=== PATIENT | female | born 1980 | race Caucasian/White ===

== ENCOUNTER 2017-07-31 23:14 | Emergency (ER) | payer OTHER ==
[~2017-07-31] VITALS: Ht 165.1 cm; Wt 79.4 kg
[~2017-07-31 23:14] MED LIST: ALPR1 PO; AMLO10 PO; ATEN25 PO; BENZ100A PO; CIPR500 PO; CYCL10 PO; DOCU100 PO; HYDACE5 PO; HYDMOR2 PO; IBUP400 PO; IBUP800 PO; LATUDA40 MG PO; LEVSOD50 PO; LISI5 PO; NAPR550 PO; OXYACE5T PO; PHENA200 PO; PROC10 PO; PROM25 PO; PROZAC20 MG PO; QUET25 PO; RXHYDMOR2 PO; RXOXYACE PO; RXPROM25 PO; RXTRAM50 PO; SULTRIDS PO; TRAM50 PO; TRAZ50 PO; VICODIN; ZESTRIL40 MG PO; Zofran Odt4 MG PO
[2017-07-31] MEDS ORDERED: Amox Tr-K Clv1 EAC2 PO (23:19)
[2017-07-31 23:59] LABS: BASOPHILS ABSOLUTE AUTO 0.07 K/mm3 (0.00-0.23); BASOPHILS PERCENT AUTO 1 % (0-2); EOSINOPHILS ABSOLUTE AUTO 1.52 K/mm3 (0.00-0.68); EOSINOPHILS PERCENT AUTO 14 % (0-6); Hematocrit 42.4 % (33.0-51.0); IMMATURE GRAN ABSOLUTE AUTO 0.07 K/mm3 (0.00-0.10); IMMATURE GRAN PERCENT AUTO 1 % (0-1); LYMPHOCYTES ABSOLUTE AUTO 3.46 K/mm3 (0.84-5.20); LYMPHOCYTES PERCENT AUTO 32 % (21-46); MONOCYTES PERCENT AUTO 6 % (4-13); Mean Corpuscular HGB 31.3 pg (26.0-34.0); Mean Corpuscular Volume 95 fL (80-100); Mean Platelet Volume 12.1 fL (9.1-12.4); NEUTROPHILS ABSOLUTE AUTO 5.07 K/mm3 (1.96-9.15); NEUTROPHILS PERCENT AUTO 47 % (41-73); Platelet Count 204 K/mm3 (150-400); RDW Coefficient Variation 13.6 % (11.7-14.2); RDW Standard Deviation 47.3 fL (35.1-46.3); Red Blood Cell Count 4.48 M/mm3 (3.80-5.20); White Blood Cell Count 10.79 K/mm3 (4.00-11.30)
[2017-08-01 00:12] LABS: Alanine Aminotransfer (ALT/SGP 37 U/L (12-78); Albumin/Globulin Ratio 0.8 (0.8-1.8); Alk Phos 119 U/L (50-136); Anion Gap 8 mmol/L (6-16); Aspartate Aminotrans (AST/SGOT 28 U/L (12-37); Bilirubin, Total 0.1 mg/dL (0.1-1.0); Blood Urea Nitrogen 24 mg/dL (8-24); Bun/Creatinine Ratio 32.6 (12.0-20.0); CO2, Blood 26 mmol/L (21-32); Calcium, Blood 8.7 mg/dL (8.5-10.1); Chloride, Blood 106 mmol/L (98-108); Creatinine, Blood 0.74 mg/dL (0.40-1.00); Globulin, Blood 3.9 g/dL (2.2-4.0); Glomerular Filtration Rate >60 (60-); Glucose, Blood 96 mg/dL (70-99); Potassium, Blood 4.1 mmol/L (3.5-5.5); Sodium, Blood 140 mmol/L (136-145); Total Protein, Blood 6.9 g/dL (6.4-8.2)
[2017-08-01 00:20] LABS: Source, Urine Clean Catch
[2017-08-01 00:23] LABS: Bilirubin, Urine Neg (Neg); Blood, Urine 1+ (Neg); Glucose Qualitative, Urine Neg (Neg); Ketones, Urine Neg (Neg); Leukocyte Esterase, Urine Neg (Neg); Nitrite, Urine Neg (Neg); Protein, Urine Neg (Neg); Specific Gravity, Urine 1.015 (1.003-1.022); Urobilinogen, Urine NORM (Normal)
[2017-08-01 00:36] LABS: Appearance, Urine Clear (Clear); Color, Urine Pale Yellow (P-Yellow)
[2017-08-01 00:37] LABS: Bacteria Rare /hpf; Red Blood Cells, Urine Rare /hpf (0-2); Squamous Epithelial Cells Mod /hpf (Few); White Blood Cells, Urine Not Seen /hpf (0-5)
[2017-08-01] MEDS ORDERED: Zofran Odt4 MG SL (00:52)
[2018-04-08] MEDS ORDERED: IBUP400 PO (05:14)
[2018-04-09] MEDS ORDERED: LEVE500 PO (09:50)
[2018-04-09] MEDS ORDERED: PROZAC20 MG PO (09:50)
[2018-04-09] MEDS ORDERED: Seroquel50 MG PO (09:51)
[2018-06-19] MEDS ORDERED: Norco 5-325 Ta1 EACH PO (03:56)
[2018-06-19] MEDS ORDERED: Crutch1 EACH UD (03:56)
[2018-06-30] MEDS ORDERED: LATUDA80 MG PO (06:03)
[2018-06-30] MEDS ORDERED: Omeprazole20 M1 (06:03)
[2018-06-30] MEDS ORDERED: Zofran4 MG PO (08:48)
[2018-06-30] MEDS ORDERED: Macrobid 100 M100 MG PO (08:48)
== END 2017-08-01 01:10 | disposition home or self-care (01) ==
LOC: ER 23:14
PROVIDERS: Physician Assistant
DX: R10.30 Lower abdominal pain, unspecified (principal); R11.2 Nausea with vomiting, unspecified; I10 Essential (primary) hypertension; F17.200 Nicotine dependence, unspecified, uncomplicated; Z90.49 Acquired absence of other specified parts of digestive tract; Z90.710 Acquired absence of both cervix and uterus; Z88.8 Allergy status to other drugs, medicaments and biological substances; Z79.899 Other long term (current) drug therapy; Z79.2 Long term (current) use of antibiotics
CPT/HCPCS: 36415; 80053; 81001; 83690; 85025; 96374; 96375; 99283; J1630; J1885; J2405; J7030

== ENCOUNTER 2017-10-16 18:29 | Emergency (ER) | payer OTHER ==
[~2017-10-16] VITALS: Ht 162.6 cm; Wt 77.1 kg
[~2017-10-16 18:29] MED LIST changes: +Amox Tr-K Clv1 EAC2 PO; +Zofran Odt4 MG SL
[2017-10-16 19:05] LABS: Source, Urine Clean Catch
[2017-10-16 19:42] LABS: Appearance, Urine Hazy (Clear); Bilirubin, Urine Neg (Neg); Blood, Urine 3+ (Neg); Color, Urine Yellow (P-Yellow); Glucose Qualitative, Urine Neg (Neg); Ketones, Urine 1+ (Neg); Leukocyte Esterase, Urine Neg (Neg); Nitrite, Urine Pos (Neg); Protein, Urine 3+ (Neg); Urobilinogen, Urine NORM (Normal)
[2017-10-16] MEDS ORDERED: Hydromet Syrup473 ML PO (19:48)
[2017-10-16] MEDS ORDERED: Keflex500 MG PO (19:48)
[2017-10-16] MEDS ORDERED: Sudogest60 MG PO (19:48)
[2017-10-16 19:56] LABS: Bacteria Many /hpf; Squamous Epithelial Cells Mod /hpf (Few)
[2018-04-08] MEDS ORDERED: IBUP400 PO (05:14)
[2018-04-09] MEDS ORDERED: LEVE500 PO (09:50)
[2018-04-09] MEDS ORDERED: PROZAC20 MG PO (09:50)
[2018-04-09] MEDS ORDERED: Seroquel50 MG PO (09:51)
[2018-06-19] MEDS ORDERED: Norco 5-325 Ta1 EACH PO (03:56)
[2018-06-19] MEDS ORDERED: Crutch1 EACH UD (03:56)
[2018-06-30] MEDS ORDERED: Omeprazole20 M1 (06:03)
[2018-06-30] MEDS ORDERED: LATUDA80 MG PO (06:03)
[2018-06-30] MEDS ORDERED: Zofran4 MG PO (08:48)
[2018-06-30] MEDS ORDERED: Macrobid 100 M100 MG PO (08:48)
== END 2017-10-16 20:00 | disposition home or self-care (01) ==
LOC: ER 18:29
PROVIDERS: Physician Assistant
DX: N39.0 Urinary tract infection, site not specified (principal); R05 Cough; Z88.8 Allergy status to other drugs, medicaments and biological substances; Z79.899 Other long term (current) drug therapy; F17.200 Nicotine dependence, unspecified, uncomplicated
CPT/HCPCS: 81001; 81025; 87077; 87086; 87186; 99284

== ENCOUNTER 2018-02-01 17:43 | Emergency (ER) | payer OTHER ==
[~2018-02-01] VITALS: Ht 165.1 cm; Wt 81.7 kg
[~2018-02-01 17:43] MED LIST changes: +Hydromet Syrup473 ML PO; +Keflex500 MG PO; +Sudogest60 MG PO
[2018-02-01] MEDS ORDERED: Omeprazole20 M1 PO (18:22)
[2018-02-01] MEDS ORDERED: Keflex500 MG PO (19:28)
[2018-02-01] MEDS ORDERED: Bactrim Ds Tab1 EACH PO (19:28)
[2018-02-01] MEDS ORDERED: Norco 5-325 Ta1 EACH PO (19:29)
== END 2018-02-01 19:46 | disposition home or self-care (01) ==
LOC: ER 17:43
DX: N76.4 Abscess of vulva (principal); K21.9 Gastro-esophageal reflux disease without esophagitis; I10 Essential (primary) hypertension; F17.200 Nicotine dependence, unspecified, uncomplicated; Z88.8 Allergy status to other drugs, medicaments and biological substances; Z88.5 Allergy status to narcotic agent; Z79.899 Other long term (current) drug therapy
CPT/HCPCS: 56405; 99283-25

== ENCOUNTER → 2018-03-03 | Outpatient (CLI) | payer OTHER ==
[~2018-03-03] MED LIST changes: +Bactrim Ds Tab1 EACH PO; +Norco 5-325 Ta1 EACH PO; +Omeprazole20 M1 PO
[2018-03-03 13:47] LABS: BASOPHILS ABSOLUTE AUTO 0.07 K/mm3 (0.00-0.23); BASOPHILS PERCENT AUTO 1 % (0-2); EOSINOPHILS ABSOLUTE AUTO 0.67 K/mm3 (0.00-0.68); EOSINOPHILS PERCENT AUTO 8 % (0-6); Hematocrit 43.3 % (33.0-51.0); Hemoglobin 14.9 g/dL (11.5-16.0); IMMATURE GRAN ABSOLUTE AUTO 0.04 K/mm3 (0.00-0.10); IMMATURE GRAN PERCENT AUTO 1 % (0-1); LYMPHOCYTES ABSOLUTE AUTO 2.01 K/mm3 (0.84-5.20); LYMPHOCYTES PERCENT AUTO 23 % (21-46); MONOCYTES ABSOLUTE AUTO 0.43 K/mm3 (0.16-1.47); MONOCYTES PERCENT AUTO 5 % (4-13); Mean Corpuscular HGB 31.4 pg (26.0-34.0); Mean Corpuscular HGB Conc 34.4 g/dL (31.5-36.5); Mean Corpuscular Volume 91 fL (80-100); Mean Platelet Volume 11.8 fL (9.1-12.4); NEUTROPHILS ABSOLUTE AUTO 5.44 K/mm3 (1.96-9.15); NEUTROPHILS PERCENT AUTO 63 % (41-73); Platelet Count 231 K/mm3 (150-400); RDW Coefficient Variation 13.2 % (11.7-14.2); RDW Standard Deviation 44.4 fL (35.1-46.3); Red Blood Cell Count 4.74 M/mm3 (3.80-5.20); White Blood Cell Count 8.66 K/mm3 (4.00-11.30)
[2018-03-03 14:01] LABS: Alanine Aminotransfer (ALT/SGP 97 U/L (12-78); Albumin, Blood 3.4 g/dL (3.4-5.0); Alk Phos 113 U/L (40-126); Anion Gap 10 mmol/L (6-16); Aspartate Aminotrans (AST/SGOT 43 U/L (12-37); Bilirubin, Total 0.2 mg/dL (0.1-1.0); Blood Urea Nitrogen 20 mg/dL (8-24); Bun/Creatinine Ratio 23.3 (12.0-20.0); CO2, Blood 25 mmol/L (21-32); Calcium, Blood 9.3 mg/dL (8.5-10.1); Chloride, Blood 105 mmol/L (98-108); Creatinine, Blood 0.86 mg/dL (0.40-1.00); Globulin, Blood 3.4 g/dL (2.2-4.0); Glomerular Filtration Rate >60 (60-); Glucose, Blood 100 mg/dL (70-99); Potassium, Blood 4.1 mmol/L (3.5-5.5); Sodium, Blood 140 mmol/L (136-145); Total Protein, Blood 6.8 g/dL (6.4-8.2)
== END ==
LOC: LAB EV 13:42 → LAB SHORT 13:42
PROVIDERS: Family Medicine
DX: M54.5 Low back pain (principal)
CPT/HCPCS: 80053; 85025

== ENCOUNTER 2018-04-04 00:11 | Emergency (ER) | payer OTHER ==
[~2018-04-04] VITALS: Ht 165.1 cm; Wt 83.9 kg
[2018-04-04 00:33] LABS: BASOPHILS ABSOLUTE AUTO 0.08 K/mm3 (0.00-0.23); BASOPHILS PERCENT AUTO 1 % (0-2); EOSINOPHILS PERCENT AUTO 7 % (0-6); Hemoglobin 13.9 g/dL (11.5-16.0); IMMATURE GRAN ABSOLUTE AUTO 0.07 K/mm3 (0.00-0.10); IMMATURE GRAN PERCENT AUTO 1 % (0-1); LYMPHOCYTES ABSOLUTE AUTO 2.92 K/mm3 (0.84-5.20); LYMPHOCYTES PERCENT AUTO 34 % (21-46); MONOCYTES ABSOLUTE AUTO 0.36 K/mm3 (0.16-1.47); MONOCYTES PERCENT AUTO 4 % (4-13); Mean Corpuscular HGB 31.3 pg (26.0-34.0); Mean Corpuscular HGB Conc 33.1 g/dL (31.5-36.5); Mean Corpuscular Volume 95 fL (80-100); Mean Platelet Volume 11.7 fL (9.1-12.4); NEUTROPHILS ABSOLUTE AUTO 4.46 K/mm3 (1.96-9.15); NEUTROPHILS PERCENT AUTO 53 % (41-73); Platelet Count 214 K/mm3 (150-400); RDW Coefficient Variation 13.2 % (11.7-14.2); Red Blood Cell Count 4.44 M/mm3 (3.80-5.20); White Blood Cell Count 8.49 K/mm3 (4.00-11.30)
[2018-04-04 00:52] LABS: Alanine Aminotransfer (ALT/SGP 179 U/L (12-78); Albumin, Blood 3.1 g/dL (3.4-5.0); Albumin/Globulin Ratio 0.8 (0.8-1.8); Alk Phos 145 U/L (50-136); Anion Gap 7 mmol/L (6-16); Aspartate Aminotrans (AST/SGOT 37 U/L (12-37); Bilirubin, Total 0.2 mg/dL (0.1-1.0); Blood Urea Nitrogen 25 mg/dL (8-24); Bun/Creatinine Ratio 26.8 (12.0-20.0); CO2, Blood 26 mmol/L (21-32); Calcium, Blood 8.5 mg/dL (8.5-10.1); Chloride, Blood 107 mmol/L (98-108); Creatinine, Blood 0.93 mg/dL (0.40-1.00); Globulin, Blood 3.9 g/dL (2.2-4.0); Glomerular Filtration Rate >60 (60-); Glucose, Blood 123 mg/dL (70-99); Potassium, Blood 4.5 mmol/L (3.5-5.5); Sodium, Blood 140 mmol/L (136-145)
[2018-04-04 01:35] LABS: Ethanol (Alcohol), Blood, Med <3 mg/dL; Free Thyroxine 0.73 ng/dL (0.70-1.60)
[2018-04-04 01:37] LABS: Triiodothyronine, Free 2.66 pg/mL (2.18-3.98)
[2018-04-04 02:04] LABS: Source, Urine Clean Catch
[2018-04-04 02:06] LABS: Bilirubin, Urine Neg (Neg); Blood, Urine Neg (Neg); Glucose Qualitative, Urine Neg (Neg); Ketones, Urine Neg (Neg); Leukocyte Esterase, Urine Neg (Neg); Nitrite, Urine Neg (Neg); Protein, Urine 1+ (Neg); Urobilinogen, Urine NORM (Normal)
[2018-04-04 02:11] LABS: Appearance, Urine Clear (Clear); Color, Urine Yellow (P-Yellow)
[2018-04-04] MEDS ORDERED: FLUO10 PO (02:17)
[2018-04-04 02:19] LABS: U Amphetamine Screen Not Detected; U Barbituate Screen Not Detected; U Benzodiazapine Screen DETECTED; U Buprenorphine Screen Not Detected; U Cannabinoids Screen Not Detected; U Cocaine Screen Not Detected; U Methadone Screen Not Detected; U Methamphetamine Screen Not Detected; U Opiates Screen Not Detected; U Oxycodone Screen Not Detected; U Phencyclidine Screen Not Detected; U Propoxyphene Screen Not Detected
== END 2018-04-04 04:36 | disposition home or self-care (01) ==
LOC: ER 00:11
PROVIDERS: Emergency Medicine
DX: R55 Syncope and collapse (principal); R10.9 Unspecified abdominal pain; Z88.8 Allergy status to other drugs, medicaments and biological substances; Z88.6 Allergy status to analgesic agent; Z79.899 Other long term (current) drug therapy; Z79.2 Long term (current) use of antibiotics; Z87.891 Personal history of nicotine dependence
CPT/HCPCS: 70450; 80053; 84439; 84443; 84481; 85025; 93005; 93010; 96361; 96374; 96375; 99285-25; G0480; J2060; J2405; J3010; J7030

== ENCOUNTER 2018-04-06 13:01 | Emergency (ER) | payer OTHER ==
[~2018-04-06] VITALS: Ht 165.1 cm; Wt 72.6 kg
[~2018-04-06 13:01] MED LIST changes: +FLUO10 PO
[2018-04-06 13:44] LABS: BASOPHILS ABSOLUTE AUTO 0.08 K/mm3 (0.00-0.23); BASOPHILS PERCENT AUTO 1 % (0-2); EOSINOPHILS ABSOLUTE AUTO 0.55 K/mm3 (0.00-0.68); EOSINOPHILS PERCENT AUTO 6 % (0-6); Hematocrit 43.7 % (33.0-51.0); Hemoglobin 14.6 g/dL (11.5-16.0); IMMATURE GRAN PERCENT AUTO 1 % (0-1); LYMPHOCYTES PERCENT AUTO 27 % (21-46); MONOCYTES ABSOLUTE AUTO 0.44 K/mm3 (0.16-1.47); MONOCYTES PERCENT AUTO 5 % (4-13); Mean Corpuscular HGB 31.4 pg (26.0-34.0); Mean Corpuscular HGB Conc 33.4 g/dL (31.5-36.5); Mean Corpuscular Volume 94 fL (80-100); Mean Platelet Volume 11.6 fL (9.1-12.4); NEUTROPHILS ABSOLUTE AUTO 5.48 K/mm3 (1.96-9.15); NEUTROPHILS PERCENT AUTO 60 % (41-73); Platelet Count 218 K/mm3 (150-400); RDW Coefficient Variation 13.2 % (11.7-14.2); RDW Standard Deviation 45.1 fL (35.1-46.3); Red Blood Cell Count 4.65 M/mm3 (3.80-5.20); White Blood Cell Count 9.15 K/mm3 (4.00-11.30)
[2018-04-06 14:00] LABS: Alanine Aminotransfer (ALT/SGP 111 U/L (12-78); Albumin, Blood 3.3 g/dL (3.4-5.0); Albumin/Globulin Ratio 0.9 (0.8-1.8); Alk Phos 120 U/L (50-136); Anion Gap 8 mmol/L (6-16); Aspartate Aminotrans (AST/SGOT 30 U/L (12-37); Bilirubin, Total 0.2 mg/dL (0.1-1.0); Blood Urea Nitrogen 23 mg/dL (8-24); Bun/Creatinine Ratio 28.7 (12.0-20.0); CO2, Blood 25 mmol/L (21-32); Calcium, Blood 8.2 mg/dL (8.5-10.1); Chloride, Blood 107 mmol/L (98-108); Globulin, Blood 3.7 g/dL (2.2-4.0); Glomerular Filtration Rate >60 (60-); Glucose, Blood 106 mg/dL (70-99); Potassium, Blood 4.2 mmol/L (3.5-5.5); Sodium, Blood 140 mmol/L (136-145)
[2018-04-06] MEDS ORDERED: Ativan1 MG PO (15:38)
[2018-04-08] MEDS ORDERED: IBUP400 PO (05:14)
[2018-04-09] MEDS ORDERED: PROZAC20 MG PO (09:50)
[2018-04-09] MEDS ORDERED: LEVE500 PO (09:50)
[2018-04-09] MEDS ORDERED: Seroquel50 MG PO (09:51)
== END 2018-04-06 16:01 | disposition home or self-care (01) ==
LOC: ER 13:01
PROVIDERS: Emergency Medicine
DX: R56.9 Unspecified convulsions (principal); Z88.8 Allergy status to other drugs, medicaments and biological substances; Z88.5 Allergy status to narcotic agent; Z79.899 Other long term (current) drug therapy
CPT/HCPCS: 80053; 85025; 93005; 93010; 96361; 96374; 96375; 99284-25; J1630; J2060; J7030

== ENCOUNTER 2018-04-07 13:22 | Emergency (ER) | payer OTHER ==
[~2018-04-07] VITALS: Ht 165.1 cm; Wt 81.7 kg
[~2018-04-07 13:22] MED LIST changes: +Ativan1 MG PO
[2018-04-08] MEDS ORDERED: IBUP400 PO (05:14)
[2018-04-09] MEDS ORDERED: LEVE500 PO (09:50)
[2018-04-09] MEDS ORDERED: PROZAC20 MG PO (09:50)
[2018-04-09] MEDS ORDERED: Seroquel50 MG PO (09:51)
== END 2018-04-07 13:58 | disposition left against medical advice (07) ==
LOC: ER 13:22
DX: Z53.21 Procedure and treatment not carried out due to patient leaving prior to being seen by health care provider (principal)
CPT/HCPCS: 99281

== ENCOUNTER 2018-04-17 18:00 | Emergency (ER) | payer OTHER ==
[~2018-04-17] VITALS: Ht 165.1 cm; Wt 83.9 kg
[~2018-04-17 18:00] MED LIST changes: +LEVE500 PO; +Seroquel50 MG PO
[2018-04-17 19:02] LABS: BASOPHILS ABSOLUTE AUTO 0.08 K/mm3 (0.00-0.23); BASOPHILS PERCENT AUTO 1 % (0-2); EOSINOPHILS ABSOLUTE AUTO 0.74 K/mm3 (0.00-0.68); EOSINOPHILS PERCENT AUTO 8 % (0-6); Hematocrit 43.4 % (33.0-51.0); Hemoglobin 14.3 g/dL (11.5-16.0); IMMATURE GRAN PERCENT AUTO 1 % (0-1); LYMPHOCYTES ABSOLUTE AUTO 2.77 K/mm3 (0.84-5.20); LYMPHOCYTES PERCENT AUTO 29 % (21-46); MONOCYTES ABSOLUTE AUTO 0.52 K/mm3 (0.16-1.47); MONOCYTES PERCENT AUTO 5 % (4-13); Mean Corpuscular HGB 30.9 pg (26.0-34.0); Mean Corpuscular HGB Conc 32.9 g/dL (31.5-36.5); Mean Corpuscular Volume 94 fL (80-100); NEUTROPHILS ABSOLUTE AUTO 5.39 K/mm3 (1.96-9.15); NEUTROPHILS PERCENT AUTO 56 % (41-73); RDW Coefficient Variation 13.1 % (11.7-14.2); RDW Standard Deviation 45.1 fL (35.1-46.3); Red Blood Cell Count 4.63 M/mm3 (3.80-5.20)
[2018-04-17 19:08] LABS: Source, Urine Clean Catch
[2018-04-17 19:18] LABS: Alanine Aminotransfer (ALT/SGP 56 U/L (12-78); Albumin, Blood 3.3 g/dL (3.4-5.0); Albumin/Globulin Ratio 0.8 (0.8-1.8); Alk Phos 102 U/L (50-136); Anion Gap 8 mmol/L (6-16); Aspartate Aminotrans (AST/SGOT 34 U/L (12-37); Bilirubin, Total 0.2 mg/dL (0.1-1.0); Blood Urea Nitrogen 30 mg/dL (8-24); Bun/Creatinine Ratio 38.3 (12.0-20.0); CO2, Blood 24 mmol/L (21-32); Calcium, Blood 8.8 mg/dL (8.5-10.1); Chloride, Blood 107 mmol/L (98-108); Creatinine, Blood 0.78 mg/dL (0.40-1.00); Glomerular Filtration Rate >60 (60-); Glucose, Blood 89 mg/dL (70-99); Potassium, Blood 4.2 mmol/L (3.5-5.5); Sodium, Blood 139 mmol/L (136-145); Total Protein, Blood 7.3 g/dL (6.4-8.2)
[2018-04-17 19:26] LABS: Mean Platelet Volume 11.6 fL (9.1-12.4); Platelet Count 186 K/mm3 (150-400)
[2018-04-17 19:33] LABS: Appearance, Urine Hazy (Clear); Bilirubin, Urine Neg (Neg); Blood, Urine 5+ (Neg); Color, Urine Yellow (P-Yellow); Glucose Qualitative, Urine Neg (Neg); Ketones, Urine Neg (Neg); Leukocyte Esterase, Urine Neg (Neg); Nitrite, Urine Neg (Neg); Protein, Urine 1+ (Neg); Specific Gravity, Urine 1.015 (1.003-1.022); Urobilinogen, Urine NORM (Normal)
[2018-04-17 19:42] LABS: Bacteria Many /hpf; Red Blood Cells, Urine 25-50 /hpf (0-2); Squamous Epithelial Cells Many /hpf (Few)
[2018-04-17] MEDS ORDERED: Zofran4 MG PO (21:44)
[2018-04-17] MEDS ORDERED: Norco 5-325 Ta1 EACH PO (21:44)
[2018-04-17] MEDS ORDERED: Macrobid 100 M100 MG PO (21:44)
== END 2018-04-17 21:57 | disposition home or self-care (01) ==
LOC: ER 18:00
PROVIDERS: Physician Assistant
DX: R82.71 Bacteriuria (principal); F31.9 Bipolar disorder, unspecified; I10 Essential (primary) hypertension; Z91.048 Other nonmedicinal substance allergy status; Z88.8 Allergy status to other drugs, medicaments and biological substances; Z88.5 Allergy status to narcotic agent; Z79.899 Other long term (current) drug therapy; Z87.891 Personal history of nicotine dependence
CPT/HCPCS: 36415; 74176; 80053; 81001; 85025; 96361; 96374; 99284-25; J3010; J7030

== ENCOUNTER 2018-09-04 23:32 | Emergency (ER) | payer OTHER ==
[~2018-09-04] VITALS: Ht 165.1 cm; Wt 88.5 kg
[~2018-09-04 23:32] MED LIST changes: +Crutch1 EACH UD; +LATUDA80 MG PO; +Macrobid 100 M100 MG PO; +Omeprazole20 M1; +Zofran4 MG PO
[2018-09-05] MEDS ORDERED: DIVA125EC (00:06)
[2018-09-05] MEDS ORDERED: TOPI25 (00:07)
[2018-09-05 00:29] LABS: Source, Urine Clean Catch
[2018-09-05 00:54] LABS: Bilirubin, Urine Neg (Neg); Blood, Urine 1+ (Neg); Glucose Qualitative, Urine Neg (Neg); Ketones, Urine Neg (Neg); Leukocyte Esterase, Urine Neg (Neg); Nitrite, Urine Neg (Neg); Protein, Urine 2+ (Neg); Specific Gravity, Urine 1.015 (1.003-1.022); Urobilinogen, Urine NORM (Normal)
[2018-09-05 01:05] LABS: Appearance, Urine Clear (Clear); Color, Urine Yellow (P-Yellow)
[2018-09-05 01:07] LABS: Bacteria Mod /hpf; Red Blood Cells, Urine 0-2 /hpf (0-2); Squamous Epithelial Cells Few /hpf (Few)
[2018-09-05] MEDS ORDERED: CEPH500 PO (01:20)
[2018-09-05] MEDS ORDERED: Pyridium100 MG PO (01:20)
[2018-09-05] MEDS ORDERED: BENZ100A PO (01:20)
== END 2018-09-05 01:45 | disposition home or self-care (01) ==
LOC: ER 23:32
PROVIDERS: Emergency Medicine
DX: J06.9 Acute upper respiratory infection, unspecified (principal); N39.0 Urinary tract infection, site not specified; Z88.8 Allergy status to other drugs, medicaments and biological substances; Z88.6 Allergy status to analgesic agent; Z79.899 Other long term (current) drug therapy; Z87.891 Personal history of nicotine dependence
CPT/HCPCS: 81001; 81025; 87081; 87086; 87430; 99283

== ENCOUNTER → 2018-09-22 | Outpatient (CLI) | payer OTHER ==
[~2018-09-22] MED LIST changes: +CEFP200 PO; +CEPH500 PO; +DIVA125EC; +DIVA500EC PO; +Pyridium100 MG PO; +TOPI25; +TOPI25 PO
[2018-09-22 13:58] LABS: BASOPHILS ABSOLUTE AUTO 0.07 K/mm3 (0.00-0.23); BASOPHILS PERCENT AUTO 1 % (0-2); EOSINOPHILS ABSOLUTE AUTO 0.79 K/mm3 (0.00-0.68); EOSINOPHILS PERCENT AUTO 10 % (0-6); Hematocrit 45.3 % (33.0-51.0); Hemoglobin 15.5 g/dL (11.5-16.0); IMMATURE GRAN ABSOLUTE AUTO 0.04 K/mm3 (0.00-0.10); IMMATURE GRAN PERCENT AUTO 1 % (0-1); LYMPHOCYTES ABSOLUTE AUTO 2.39 K/mm3 (0.84-5.20); LYMPHOCYTES PERCENT AUTO 30 % (21-46); MONOCYTES ABSOLUTE AUTO 0.38 K/mm3 (0.16-1.47); MONOCYTES PERCENT AUTO 5 % (4-13); Mean Corpuscular HGB 30.6 pg (26.0-34.0); Mean Corpuscular HGB Conc 34.2 g/dL (31.5-36.5); Mean Corpuscular Volume 89 fL (80-100); Mean Platelet Volume 11.5 fL (9.1-12.4); NEUTROPHILS ABSOLUTE AUTO 4.31 K/mm3 (1.96-9.15); NEUTROPHILS PERCENT AUTO 54 % (41-73); Platelet Count 223 K/mm3 (150-400); RDW Coefficient Variation 13.3 % (11.7-14.2); RDW Standard Deviation 43.1 fL (35.1-46.3); Red Blood Cell Count 5.07 M/mm3 (3.80-5.20); White Blood Cell Count 7.98 K/mm3 (4.00-11.30)
[2018-09-22 14:05] LABS: Anion Gap 9 mmol/L (6-16); Blood Urea Nitrogen 21 mg/dL (8-24); Bun/Creatinine Ratio 24.7 (12.0-20.0); CO2, Blood 24 mmol/L (21-32); Calcium, Blood 8.5 mg/dL (8.5-10.1); Chloride, Blood 105 mmol/L (98-108); Creatinine, Blood 0.85 mg/dL (0.40-1.00); Glomerular Filtration Rate >60 (60-); Glucose, Blood 105 mg/dL (70-99); Potassium, Blood 3.7 mmol/L (3.5-5.5); Sodium, Blood 138 mmol/L (136-145)
== END | disposition home or self-care (01) ==
LOC: LAB SHORT 13:54 → LAB EV 13:54
PROVIDERS: Physician Assistant Surgical
DX: N04.9 Nephrotic syndrome with unspecified morphologic changes (principal)
CPT/HCPCS: 80048; 85025

== ENCOUNTER 2018-09-23 10:56 | Emergency (ER) | payer OTHER ==
[~2018-09-23] VITALS: Ht 165.1 cm; Wt 96.2 kg
[~2018-09-23 10:56] MED LIST changes: -CEFP200 PO; -DIVA500EC PO; -TOPI25 PO
[2018-09-23 12:48] LABS: Alanine Aminotransfer (ALT/SGP 32 U/L (12-78); Albumin, Blood 3.3 g/dL (3.4-5.0); Albumin/Globulin Ratio 0.8 (0.8-1.8); Alk Phos 100 U/L (50-136); Anion Gap 7 mmol/L (6-16); Aspartate Aminotrans (AST/SGOT 18 U/L (12-37); Bilirubin, Total 0.2 mg/dL (0.1-1.0); Blood Urea Nitrogen 24 mg/dL (8-24); Bun/Creatinine Ratio 31.5 (12.0-20.0); CO2, Blood 20 mmol/L (21-32); Calcium, Blood 8.4 mg/dL (8.5-10.1); Chloride, Blood 125 mmol/L (98-108); Creatinine, Blood 0.76 mg/dL (0.40-1.00); Globulin, Blood 4.3 g/dL (2.2-4.0); Glomerular Filtration Rate >60 (60-); Glucose, Blood 153 mg/dL (70-99); Potassium, Blood 4.2 mmol/L (3.5-5.5); Total Protein, Blood 7.6 g/dL (6.4-8.2)
[2018-09-23 12:59] LABS: BASOPHILS PERCENT AUTO 1 % (0-2); EOSINOPHILS ABSOLUTE AUTO 0.81 K/mm3 (0.00-0.68); EOSINOPHILS PERCENT AUTO 9 % (0-6); Hematocrit 47.8 % (33.0-51.0); Hemoglobin 15.6 g/dL (11.5-16.0); IMMATURE GRAN ABSOLUTE AUTO 0.07 K/mm3 (0.00-0.10); IMMATURE GRAN PERCENT AUTO 1 % (0-1); LYMPHOCYTES ABSOLUTE AUTO 2.77 K/mm3 (0.84-5.20); LYMPHOCYTES PERCENT AUTO 31 % (21-46); MONOCYTES ABSOLUTE AUTO 0.41 K/mm3 (0.16-1.47); MONOCYTES PERCENT AUTO 5 % (4-13); Mean Corpuscular HGB 30.7 pg (26.0-34.0); Mean Corpuscular HGB Conc 32.6 g/dL (31.5-36.5); NEUTROPHILS ABSOLUTE AUTO 4.93 K/mm3 (1.96-9.15); NEUTROPHILS PERCENT AUTO 54 % (41-73); Platelet Count 214 K/mm3 (150-400); RDW Coefficient Variation 13.1 % (11.7-14.2); Red Blood Cell Count 5.08 M/mm3 (3.80-5.20); White Blood Cell Count 9.09 K/mm3 (4.00-11.30)
[2018-09-23 13:00] LABS: Mean Corpuscular Volume 94 fL (80-100)
[2018-09-23 13:22] LABS: Sodium, Blood 152 mmol/L (136-145)
[2018-09-23 14:39] LABS: Source, Urine Clean Catch
[2018-09-23 14:46] LABS: Appearance, Urine Cloudy (Clear); Bilirubin, Urine Neg (Neg); Blood, Urine 5+ (Neg); Color, Urine Red (P-Yellow); Glucose Qualitative, Urine Neg (Neg); Ketones, Urine 1+ (Neg); Leukocyte Esterase, Urine 1+ (Neg); Nitrite, Urine Pos (Neg); Protein, Urine 2+ (Neg); Urobilinogen, Urine NORM (Normal)
[2018-09-23] MEDS ORDERED: DIVA500EC PO (15:00)
[2018-09-23] MEDS ORDERED: Omeprazole20 M1 PO (15:01)
[2018-09-23] MEDS ORDERED: LISI5 PO (15:01)
[2018-09-23] MEDS ORDERED: TOPI25 PO (15:02)
[2018-09-23 15:08] LABS: Squamous Epithelial Cells Rare /hpf (Few)
[2018-09-23 15:09] LABS: Bacteria Rare /hpf; Red Blood Cells, Urine TNTC /hpf (0-2); White Blood Cells, Urine Not Seen /hpf (0-5)
[2018-09-23] MEDS ORDERED: CEFP200 PO (17:35)
== END 2018-09-23 17:47 | disposition home or self-care (01) ==
LOC: ER 10:56
PROVIDERS: Physician Assistant
DX: N12 Tubulo-interstitial nephritis, not specified as acute or chronic (principal); E87.0 Hyperosmolality and hypernatremia; Z87.891 Personal history of nicotine dependence
CPT/HCPCS: 36415; 76770; 80053; 81001; 85025; 87086

== ENCOUNTER → 2018-10-19 | Outpatient (CLI) | payer OTHER ==
[~2018-10-19] MED LIST changes: +CEFP200 PO; +DIVA500EC PO; +TOPI25 PO
[2018-10-19 12:38] LABS: BASOPHILS ABSOLUTE AUTO 0.05 K/mm3 (0.00-0.23); BASOPHILS PERCENT AUTO 1 % (0-2); EOSINOPHILS PERCENT AUTO 7 % (0-6); Hematocrit 45.4 % (33.0-51.0); Hemoglobin 15.6 g/dL (11.5-16.0); IMMATURE GRAN ABSOLUTE AUTO 0.02 K/mm3 (0.00-0.10); IMMATURE GRAN PERCENT AUTO 0 % (0-1); LYMPHOCYTES ABSOLUTE AUTO 2.17 K/mm3 (0.84-5.20); LYMPHOCYTES PERCENT AUTO 30 % (21-46); MONOCYTES ABSOLUTE AUTO 0.42 K/mm3 (0.16-1.47); MONOCYTES PERCENT AUTO 6 % (4-13); Mean Corpuscular HGB Conc 34.4 g/dL (31.5-36.5); Mean Corpuscular Volume 90 fL (80-100); Mean Platelet Volume 11.4 fL (9.1-12.4); NEUTROPHILS ABSOLUTE AUTO 4.14 K/mm3 (1.96-9.15); NEUTROPHILS PERCENT AUTO 57 % (41-73); Platelet Count 238 K/mm3 (150-400); RDW Coefficient Variation 14.1 % (11.7-14.2); RDW Standard Deviation 46.4 fL (35.1-46.3); Red Blood Cell Count 5.04 M/mm3 (3.80-5.20)
[2018-10-19 12:52] LABS: Alanine Aminotransfer (ALT/SGP 34 U/L (12-78); Albumin, Blood 3.6 g/dL (3.4-5.0); Albumin/Globulin Ratio 0.9 (0.8-1.8); Alk Phos 103 U/L (40-126); Anion Gap 12 mmol/L (6-16); Aspartate Aminotrans (AST/SGOT 21 U/L (12-37); Bilirubin, Total 0.4 mg/dL (0.1-1.0); Blood Urea Nitrogen 24 mg/dL (8-24); Bun/Creatinine Ratio 28.2 (12.0-20.0); CO2, Blood 22 mmol/L (21-32); Calcium, Blood 8.9 mg/dL (8.5-10.1); Chloride, Blood 108 mmol/L (98-108); Creatinine, Blood 0.85 mg/dL (0.40-1.00); Globulin, Blood 4.2 g/dL (2.2-4.0); Glomerular Filtration Rate >60 (60-); Glucose, Blood 95 mg/dL (70-99); Potassium, Blood 3.9 mmol/L (3.5-5.5); Sodium, Blood 142 mmol/L (136-145); Total Protein, Blood 7.8 g/dL (6.4-8.2)
== END | disposition home or self-care (01) ==
LOC: LAB SHORT 12:33 → LAB EV 12:33
PROVIDERS: Physician Assistant
DX: R10.9 Unspecified abdominal pain (principal)
CPT/HCPCS: 80053; 83690; 85025

== ENCOUNTER → 2018-11-07 | Outpatient (CLI) | payer OTHER ==
[2018-11-07 14:13] LABS: Appearance, Urine Hazy (Clear); Bilirubin, Urine Neg (Neg); Blood, Urine 1+ (Neg); Color, Urine Yellow (P-Yellow); Glucose Qualitative, Urine Neg (Neg); Ketones, Urine 1+ (Neg); Leukocyte Esterase, Urine Neg (Neg); Nitrite, Urine Neg (Neg); Protein, Urine 3+ (Neg); Urobilinogen, Urine NORM (Normal)
[2018-11-07 14:41] LABS: Bacteria Few /hpf; Squamous Epithelial Cells Many /hpf (Few); White Blood Cells, Urine 0-2 /hpf (0-5)
== END | disposition home or self-care (01) ==
LOC: LAB SHORT 14:04 → LAB 14:04
PROVIDERS: Internal Medicine
DX: N18.9 Chronic kidney disease, unspecified (principal); R31.9 Hematuria, unspecified; R35.0 Frequency of micturition
CPT/HCPCS: 81001; 82570; 84156

== ENCOUNTER 2018-12-20 10:39 | Emergency (ER) | payer OTHER ==
[~2018-12-20] VITALS: Ht 165.1 cm; Wt 93.0 kg
[2018-12-20] MEDS ORDERED: ESTR2 PO (10:51)
[2018-12-20] MEDS ORDERED: ZOLP5 PO (10:51)
[2018-12-20] MEDS ORDERED: QUET25 PO (10:52)
[2018-12-20 11:31] LABS: Source, Urine Voided
[2018-12-20 11:35] LABS: BASOPHILS ABSOLUTE AUTO 0.07 K/mm3 (0.00-0.23); BASOPHILS PERCENT AUTO 1 % (0-2); Bilirubin, Urine Neg (Neg); Blood, Urine 2+ (Neg); EOSINOPHILS ABSOLUTE AUTO 0.67 K/mm3 (0.00-0.68); EOSINOPHILS PERCENT AUTO 8 % (0-6); Glucose Qualitative, Urine Neg (Neg); Hematocrit 42.7 % (33.0-51.0); Hemoglobin 14.6 g/dL (11.5-16.0); IMMATURE GRAN ABSOLUTE AUTO 0.03 K/mm3 (0.00-0.10); IMMATURE GRAN PERCENT AUTO 0 % (0-1); Ketones, Urine Neg (Neg); LYMPHOCYTES ABSOLUTE AUTO 1.92 K/mm3 (0.84-5.20); LYMPHOCYTES PERCENT AUTO 22 % (21-46); Leukocyte Esterase, Urine 1+ (Neg); MONOCYTES ABSOLUTE AUTO 0.52 K/mm3 (0.16-1.47); MONOCYTES PERCENT AUTO 6 % (4-13); Mean Corpuscular HGB 31.1 pg (26.0-34.0); Mean Corpuscular HGB Conc 34.2 g/dL (31.5-36.5); Mean Corpuscular Volume 91 fL (80-100); Mean Platelet Volume 11.9 fL (9.1-12.4); NEUTROPHILS ABSOLUTE AUTO 5.65 K/mm3 (1.96-9.15); NEUTROPHILS PERCENT AUTO 64 % (41-73); Nitrite, Urine Neg (Neg); Platelet Count 203 K/mm3 (150-400); Protein, Urine 3+ (Neg); RDW Coefficient Variation 13.5 % (11.7-14.2); RDW Standard Deviation 44.2 fL (35.1-46.3); Red Blood Cell Count 4.69 M/mm3 (3.80-5.20); Urobilinogen, Urine 1+ (Normal); White Blood Cell Count 8.86 K/mm3 (4.00-11.30)
[2018-12-20 11:42] LABS: Appearance, Urine Clear (Clear); Color, Urine Yellow (P-Yellow)
[2018-12-20 11:45] LABS: Bacteria Few /hpf; Squamous Epithelial Cells Mod /hpf (Few)
[2018-12-20 11:58] LABS: Alanine Aminotransfer (ALT/SGP 75 U/L (12-78); Albumin, Blood 3.2 g/dL (3.4-5.0); Albumin/Globulin Ratio 0.9 (0.8-1.8); Alk Phos 117 U/L (50-136); Anion Gap 8 mmol/L (6-16); Aspartate Aminotrans (AST/SGOT 31 U/L (12-37); Bilirubin, Total 0.4 mg/dL (0.1-1.0); Blood Urea Nitrogen 20 mg/dL (8-24); Bun/Creatinine Ratio 25.7 (12.0-20.0); CO2, Blood 29 mmol/L (21-32); Calcium, Blood 8.5 mg/dL (8.5-10.1); Chloride, Blood 105 mmol/L (98-108); Creatinine, Blood 0.78 mg/dL (0.40-1.00); Globulin, Blood 3.7 g/dL (2.2-4.0); Glomerular Filtration Rate >60 (60-); Glucose, Blood 117 mg/dL (70-99); Potassium, Blood 3.1 mmol/L (3.5-5.5); Sodium, Blood 142 mmol/L (136-145); Total Protein, Blood 6.9 g/dL (6.4-8.2)
[2018-12-20] MEDS ORDERED: LEVFLO500 PO (12:45)
[2018-12-20] MEDS ORDERED: PROM25 PO (12:45)
[2018-12-20] MEDS ORDERED: IBUP400 PO (12:45)
[2018-12-20] MEDS ORDERED: ACET120S PR (12:45)
== END 2018-12-20 13:12 | disposition home or self-care (01) ==
LOC: ER 10:39
PROVIDERS: Emergency Medicine
DX: N39.0 Urinary tract infection, site not specified (principal); R10.9 Unspecified abdominal pain; Z88.0 Allergy status to penicillin; Z88.8 Allergy status to other drugs, medicaments and biological substances; Z79.899 Other long term (current) drug therapy; I10 Essential (primary) hypertension; Z87.891 Personal history of nicotine dependence
CPT/HCPCS: 36415; 80053; 81001; 85025; 87077; 87086; 87186; 96365; 96375; 99283-25; J0696; J2405; J7030

== ENCOUNTER 2019-01-16 15:22 | Emergency (ER) | payer OTHER ==
[~2019-01-16] VITALS: Ht 165.1 cm; Wt 98.9 kg
[~2019-01-16 15:22] MED LIST changes: +ACET120S PR; +ESTR2 PO; +LEVFLO500 PO; +ZOLP5 PO
[2019-01-16 17:02] LABS: BASOPHILS ABSOLUTE AUTO 0.08 K/mm3 (0.00-0.23); BASOPHILS PERCENT AUTO 1 % (0-2); EOSINOPHILS ABSOLUTE AUTO 0.83 K/mm3 (0.00-0.68); EOSINOPHILS PERCENT AUTO 8 % (0-6); Hematocrit 48.4 % (33.0-51.0); Hemoglobin 16.1 g/dL (11.5-16.0); IMMATURE GRAN ABSOLUTE AUTO 0.06 K/mm3 (0.00-0.10); IMMATURE GRAN PERCENT AUTO 1 % (0-1); LYMPHOCYTES ABSOLUTE AUTO 2.69 K/mm3 (0.84-5.20); LYMPHOCYTES PERCENT AUTO 26 % (21-46); MONOCYTES PERCENT AUTO 6 % (4-13); Mean Corpuscular HGB 30.8 pg (26.0-34.0); Mean Corpuscular HGB Conc 33.3 g/dL (31.5-36.5); Mean Corpuscular Volume 93 fL (80-100); Mean Platelet Volume 11.8 fL (9.1-12.4); NEUTROPHILS ABSOLUTE AUTO 5.96 K/mm3 (1.96-9.15); NEUTROPHILS PERCENT AUTO 58 % (41-73); Platelet Count 215 K/mm3 (150-400); RDW Coefficient Variation 13.2 % (11.7-14.2); RDW Standard Deviation 44.9 fL (35.1-46.3); Red Blood Cell Count 5.22 M/mm3 (3.80-5.20); White Blood Cell Count 10.22 K/mm3 (4.00-11.30)
[2019-01-16 17:10] LABS: Source, Urine Clean Catch
[2019-01-16 17:31] LABS: Alanine Aminotransfer (ALT/SGP 59 U/L (12-78); Albumin, Blood 3.7 g/dL (3.4-5.0); Albumin/Globulin Ratio 0.8 (0.8-1.8); Alk Phos 110 U/L (50-136); Anion Gap 6 mmol/L (6-16); Aspartate Aminotrans (AST/SGOT 32 U/L (12-37); Bilirubin, Total 0.3 mg/dL (0.1-1.0); Blood Urea Nitrogen 26 mg/dL (8-24); Bun/Creatinine Ratio 29.4 (12.0-20.0); CO2, Blood 27 mmol/L (21-32); Calcium, Blood 9.6 mg/dL (8.5-10.1); Chloride, Blood 104 mmol/L (98-108); Creatinine, Blood 0.88 mg/dL (0.40-1.00); Globulin, Blood 4.5 g/dL (2.2-4.0); Glomerular Filtration Rate >60 (60-); Glucose, Blood 97 mg/dL (70-99); Potassium, Blood 3.4 mmol/L (3.5-5.5); Sodium, Blood 137 mmol/L (136-145); Total Protein, Blood 8.2 g/dL (6.4-8.2)
[2019-01-16 17:52] LABS: Bilirubin, Urine Neg (Neg); Blood, Urine 2+ (Neg); Glucose Qualitative, Urine Neg (Neg); Ketones, Urine Neg (Neg); Leukocyte Esterase, Urine Neg (Neg); Nitrite, Urine Neg (Neg); Protein, Urine 3+ (Neg); Specific Gravity, Urine 1.015 (1.003-1.022); Urobilinogen, Urine NORM (Normal)
[2019-01-16 18:20] LABS: Color, Urine Yellow (P-Yellow)
[2019-01-16 18:21] LABS: Appearance, Urine Clear (Clear)
[2019-01-16 18:30] LABS: Bacteria Not Seen /hpf; Mucus Light (0-Heavy); Red Blood Cells, Urine 0-2 /hpf (0-2); Squamous Epithelial Cells Few /hpf (Few); Transitional Epithelial Cells Few /hpf (0-Rare); White Blood Cells, Urine 0-2 /hpf (0-5)
== END 2019-01-16 20:42 | disposition home or self-care (01) ==
LOC: ER 15:22
PROVIDERS: Physician Assistant
DX: G43.909 Migraine, unspecified, not intractable, without status migrainosus (principal); I16.0 Hypertensive urgency; I10 Essential (primary) hypertension; Z88.8 Allergy status to other drugs, medicaments and biological substances; Z88.6 Allergy status to analgesic agent; Z79.899 Other long term (current) drug therapy
CPT/HCPCS: 36415; 70450; 80053; 81001; 85025; 93005; 93010; 96361; 96374; 96375; 96376; 99284-25; J0360; J1100; J1170; J1200; J1630; J1885; J2765; J7030

== ENCOUNTER 2019-02-12 01:16 | Emergency (ER) | payer OTHER ==
[~2019-02-12] VITALS: Ht 165.1 cm; Wt 99.8 kg
== END 2019-02-12 05:15 | disposition home or self-care (01) ==
LOC: ER 01:16
DX: S60.211A Contusion of right wrist, initial encounter (principal); S50.01XA Contusion of right elbow, initial encounter; S40.811A Abrasion of right upper arm, initial encounter; Y04.2XXA Assault by strike against or bumped into by another person, initial encounter; Z88.8 Allergy status to other drugs, medicaments and biological substances; Z88.6 Allergy status to analgesic agent; Z79.899 Other long term (current) drug therapy; I10 Essential (primary) hypertension; Z87.891 Personal history of nicotine dependence
CPT/HCPCS: 70450; 73080; 73110; 73562-RT; 99284-25

== ENCOUNTER 2019-05-23 04:17 | Emergency (ER) | payer OTHER ==
[~2019-05-23] VITALS: Ht 165.1 cm; Wt 99.8 kg
[2019-05-23] MEDS ORDERED: OMEPRAZOLE20 MG PO (04:32)
[2019-05-23 04:44] LABS: BASOPHILS ABSOLUTE AUTO 0.06 K/mm3 (0.00-0.23); BASOPHILS PERCENT AUTO 1 % (0-2); EOSINOPHILS ABSOLUTE AUTO 0.63 K/mm3 (0.00-0.68); EOSINOPHILS PERCENT AUTO 6 % (0-6); Hematocrit 40.4 % (33.0-51.0); Hemoglobin 13.4 g/dL (11.5-16.0); IMMATURE GRAN ABSOLUTE AUTO 0.08 K/mm3 (0.00-0.10); IMMATURE GRAN PERCENT AUTO 1 % (0-1); LYMPHOCYTES ABSOLUTE AUTO 2.84 K/mm3 (0.84-5.20); LYMPHOCYTES PERCENT AUTO 25 % (21-46); MONOCYTES ABSOLUTE AUTO 0.52 K/mm3 (0.16-1.47); MONOCYTES PERCENT AUTO 5 % (4-13); Mean Corpuscular HGB 31.8 pg (26.0-34.0); Mean Corpuscular HGB Conc 33.2 g/dL (31.5-36.5); Mean Corpuscular Volume 96 fL (80-100); Mean Platelet Volume 12.1 fL (9.1-12.4); NEUTROPHILS ABSOLUTE AUTO 7.28 K/mm3 (1.96-9.15); NEUTROPHILS PERCENT AUTO 64 % (41-73); Platelet Count 218 K/mm3 (150-400); RDW Coefficient Variation 13.6 % (11.7-14.2); RDW Standard Deviation 48.2 fL (35.1-46.3); Red Blood Cell Count 4.22 M/mm3 (3.80-5.20); White Blood Cell Count 11.41 K/mm3 (4.00-11.30)
[2019-05-23 05:04] LABS: Alanine Aminotransfer (ALT/SGP 66 U/L (12-78); Albumin, Blood 3.3 g/dL (3.4-5.0); Albumin/Globulin Ratio 0.9 (0.8-1.8); Alk Phos 96 U/L (50-136); Anion Gap 6 mmol/L (6-16); Aspartate Aminotrans (AST/SGOT 36 U/L (12-37); Bilirubin, Total 0.1 mg/dL (0.1-1.0); Blood Urea Nitrogen 17 mg/dL (8-24); Bun/Creatinine Ratio 17.9 (12.0-20.0); CO2, Blood 24 mmol/L (21-32); Calcium, Blood 9.1 mg/dL (8.5-10.1); Chloride, Blood 111 mmol/L (98-108); Creatinine, Blood 0.95 mg/dL (0.40-1.00); Globulin, Blood 3.7 g/dL (2.2-4.0); Glomerular Filtration Rate >60 (60-); Glucose, Blood 114 mg/dL (70-99); Potassium, Blood 3.8 mmol/L (3.5-5.5); Sodium, Blood 141 mmol/L (136-145); Troponin I <0.015 ng/mL (0.000-0.040)
== END 2019-05-23 05:40 | disposition home or self-care (01) ==
LOC: ER 04:17
PROVIDERS: Emergency Medicine
DX: R07.9 Chest pain, unspecified (principal); Z87.891 Personal history of nicotine dependence; Z91.048 Other nonmedicinal substance allergy status; Z88.8 Allergy status to other drugs, medicaments and biological substances; Z79.899 Other long term (current) drug therapy
CPT/HCPCS: 36415; 71046; 80053; 84484; 85025; 93005; 93010; 99285-25

== ENCOUNTER 2019-08-19 01:50 | Emergency (ER) | payer BC ==
[~2019-08-19] VITALS: Ht 165.1 cm; Wt 102.1 kg
[~2019-08-19 01:50] MED LIST changes: +OMEPRAZOLE20 MG PO
== END 2019-08-19 03:15 | disposition home or self-care (01) ==
LOC: ER 01:50
DX: S51.811A Laceration without foreign body of right forearm, initial encounter (principal); S61.411A Laceration without foreign body of right hand, initial encounter; M54.9 Dorsalgia, unspecified; G89.29 Other chronic pain; Z88.8 Allergy status to other drugs, medicaments and biological substances; Z79.899 Other long term (current) drug therapy; Z87.891 Personal history of nicotine dependence; W19.XXXA Unspecified fall, initial encounter
CPT/HCPCS: 12002; 73090; 90471; 90714; 96372-59; 96374-59; 99283-25; J3010

== ENCOUNTER 2019-09-11 13:00 | Day surgery (SDC) | payer BC ==
[~2019-09-11] VITALS: Ht 165.1 cm; Wt 103.3 kg
[~2019-09-11 13:00] MED LIST changes: +QUET100 PO; +ZESTRIL40 M1 PO
--- NOTE | 2019-09-11 16:57 | NUR ---
09/11/19 1657 Casandra Baez UP TO BR VIA WC. PT. WITH WBAT IN BOOT.
--- NOTE | 2019-09-11 17:25 | NUR ---
09/11/19 1724 Casandra Baez LATE ENTRY PT. WAS HAVING PAIN BUT WHEN TOES WERE TOUCHED ON RIGHT FOOT, PT. VERBALIZED THAT HER TOES WERE NUMB, UNABLE TO FEEL TOUCH TO TOES. GOOD CAP REFILL.
== END 2019-09-11 18:10 | disposition home or self-care (01) ==
LOC: ORSCSDS 13:00
PROVIDERS: Podiatrist Foot & Ankle Surgery
PROC: 0QSN04Z Reposition Right Metatarsal with Internal Fixation Device, Open Approach (ICD-10-PCS; principal; 2019-09-11 14:30)
PROC: 0QSQ04Z Reposition Right Toe Phalanx with Internal Fixation Device, Open Approach (ICD-10-PCS; principal; 2019-09-11 14:30)
DX: M20.11 Hallux valgus (acquired), right foot (principal); M77.41 Metatarsalgia, right foot; I10 Essential (primary) hypertension; F31.9 Bipolar disorder, unspecified; F43.10 Post-traumatic stress disorder, unspecified; Z79.899 Other long term (current) drug therapy; Z87.891 Personal history of nicotine dependence; E66.01 Morbid (severe) obesity due to excess calories; Z68.37 Body mass index [BMI] 37.0-37.9, adult
CPT/HCPCS: C1713; C1769; J0171; J0690; J1100; J2250; J2370; J2405; J2704; J2765; J3010; J7120

== ENCOUNTER 2020-09-09 09:07 | Day surgery (SDC) | payer BC ==
[2021-02-11] MEDS ORDERED: MULVITA (12:13)
[2021-02-11] MEDS ORDERED: EUTHYROX88 MCG (12:13)
[2021-02-11] MEDS ORDERED: METF500 (12:13)
[2021-02-11] MEDS ORDERED: Adipex-P37.5 MG (12:13)
== END 2020-09-09 23:40 | disposition home or self-care (01) ==
LOC: MOI US 09:07 → MOI MAM 09:30 → MOI US 09:30
DX: N60.22 Fibroadenosis of left breast (principal); R92.8 Other abnormal and inconclusive findings on diagnostic imaging of breast
CPT/HCPCS: 19083; 77065; 88305; 88342; A4648

== ENCOUNTER 2021-02-20 08:47 | Day surgery (SDC) | payer BC ==
[~2021-02-20] VITALS: Ht 165.1 cm; Wt 90.4 kg
[~2021-02-20 08:47] MED LIST changes: +Adipex-P37.5 MG; +EUTHYROX88 MCG; +METF500; +MULVITA
--- NOTE | 2021-02-20 09:56 | NUR ---
02/20/21 0956 Mirian Hutchinson CHARTING UNDER TMG
== END 2021-02-20 11:45 | disposition home or self-care (01) ==
LOC: ORSCSDS 08:47
PROVIDERS: Surgery
PROC: 0DBM8ZX Excision of Descending Colon, Via Natural or Artificial Opening Endoscopic, Diagnostic (ICD-10-PCS; principal; 2021-02-20 10:30)
PROC: 0DB78ZX Excision of Stomach, Pylorus, Via Natural or Artificial Opening Endoscopic, Diagnostic (ICD-10-PCS; principal; 2021-02-20 10:30)
PROC: 0DBN8ZX Excision of Sigmoid Colon, Via Natural or Artificial Opening Endoscopic, Diagnostic (ICD-10-PCS; principal; 2021-02-20 10:30)
PROC: 0DB48ZX Excision of Esophagogastric Junction, Via Natural or Artificial Opening Endoscopic, Diagnostic (ICD-10-PCS; principal; 2021-02-20 10:30)
DX: K21.9 Gastro-esophageal reflux disease without esophagitis (principal); Z80.0 Family history of malignant neoplasm of digestive organs; R10.31 Right lower quadrant pain; D12.4 Benign neoplasm of descending colon; D12.5 Benign neoplasm of sigmoid colon; K57.30 Diverticulosis of large intestine without perforation or abscess without bleeding; I10 Essential (primary) hypertension; G40.909 Epilepsy, unspecified, not intractable, without status epilepticus; Z79.899 Other long term (current) drug therapy; Z79.84 Long term (current) use of oral hypoglycemic drugs
CPT/HCPCS: 82947; 88305; 88342; J2704; J7120

== ENCOUNTER 2021-05-12 12:19 | Day surgery (SDC) | payer BC ==
[~2021-05-12] VITALS: Ht 165.1 cm; Wt 95.7 kg
--- NOTE | 2021-05-12 15:25 | NUR ---
05/12/21 1525 Mary Go PROCEDURE: LEFT FOOT 1ST METATERSAL MEDIAL CURNIFORM ARTHRODESIS, 2-3 THA OSTEOTOMY.
== END 2021-05-12 16:59 | disposition home or self-care (01) ==
LOC: ORSCSDS 12:19
PROVIDERS: Podiatrist Foot & Ankle Surgery
PROC: 0QSR04Z Reposition Left Toe Phalanx with Internal Fixation Device, Open Approach (ICD-10-PCS; principal; 2021-05-12 13:45)
PROC: 0QSP04Z Reposition Left Metatarsal with Internal Fixation Device, Open Approach (ICD-10-PCS; principal; 2021-05-12 13:45)
PROC: 0SGJ04Z Fusion of Left Tarsal Joint with Internal Fixation Device, Open Approach (ICD-10-PCS; principal; 2021-05-12 13:45)
DX: M21.612 Bunion of left foot (principal); M77.42 Metatarsalgia, left foot; M79.672 Pain in left foot; E11.9 Type 2 diabetes mellitus without complications; I10 Essential (primary) hypertension; Z87.891 Personal history of nicotine dependence; G40.909 Epilepsy, unspecified, not intractable, without status epilepticus; F31.4 Bipolar disorder, current episode depressed, severe, without psychotic features; Z79.899 Other long term (current) drug therapy
CPT/HCPCS: 82947; A9270; C1713; C1776; J0171; J0690; J1100; J2250; J2405; J2704; J3010

== ENCOUNTER 2021-06-25 17:04 | Emergency (ER) | payer BC ==
[~2021-06-25] VITALS: Ht 165.1 cm; Wt 95.2 kg
[~2021-06-25 17:04] MED LIST changes: -MULVITA; +MULVITA PO
[2021-06-25 17:47] LABS: BASOPHILS ABSOLUTE AUTO 0.08 K/mm3 (0.00-0.23); BASOPHILS PERCENT AUTO 1 % (0-2); EOSINOPHILS ABSOLUTE AUTO 0.76 K/mm3 (0.00-0.68); EOSINOPHILS PERCENT AUTO 8 % (0-6); Hematocrit 44.4 % (33.0-51.0); Hemoglobin 15.3 g/dL (11.5-16.0); IMMATURE GRAN ABSOLUTE AUTO 0.05 K/mm3 (0.00-0.10); IMMATURE GRAN PERCENT AUTO 1 % (0-1); LYMPHOCYTES ABSOLUTE AUTO 2.56 K/mm3 (0.84-5.20); LYMPHOCYTES PERCENT AUTO 25 % (21-46); MONOCYTES PERCENT AUTO 5 % (4-13); Mean Corpuscular HGB 32.7 pg (26.0-34.0); Mean Corpuscular HGB Conc 34.5 g/dL (31.5-36.5); Mean Corpuscular Volume 95 fL (80-100); Mean Platelet Volume 11.6 fL (9.1-12.4); NEUTROPHILS ABSOLUTE AUTO 6.22 K/mm3 (1.96-9.15); NEUTROPHILS PERCENT AUTO 61 % (41-73); Platelet Count 235 K/mm3 (150-400); RDW Standard Deviation 44.7 fL (35.1-46.3); Red Blood Cell Count 4.68 M/mm3 (3.80-5.20); White Blood Cell Count 10.17 K/mm3 (4.00-11.30)
[2021-06-25 18:03] LABS: Alanine Aminotransfer (ALT/SGP 87 U/L (12-78); Albumin, Blood 3.6 g/dL (3.4-5.0); Albumin/Globulin Ratio 0.9 (0.8-1.8); Alk Phos 118 U/L (50-136); Anion Gap 7 mmol/L (6-16); Aspartate Aminotrans (AST/SGOT 42 U/L (12-37); Bilirubin, Total 0.4 mg/dL (0.1-1.0); Blood Urea Nitrogen 26 mg/dL (8-24); Bun/Creatinine Ratio 29.5 (12.0-20.0); CO2, Blood 25 mmol/L (21-32); Calcium, Blood 9.5 mg/dL (8.5-10.1); Chloride, Blood 104 mmol/L (98-108); Creatinine, Blood 0.88 mg/dL (0.40-1.00); Globulin, Blood 4.2 g/dL (2.2-4.0); Glomerular Filtration Rate >60 (60-); Glucose, Blood 124 mg/dL (70-99); Potassium, Blood 3.8 mmol/L (3.5-5.5); Sodium, Blood 136 mmol/L (136-145); Total Protein, Blood 7.8 g/dL (6.4-8.2)
[2021-06-25] MEDS ORDERED: QUETIAPINE FUM PO (18:18)
[2021-06-25] MEDS ORDERED: SYNTHROID PO (18:18)
[2021-06-25] MEDS ORDERED: OMEP20ER PO (18:19)
[2021-06-25] MEDS ORDERED: SULTRIDS PO (19:58)
[2021-06-25] MEDS ORDERED: AMOCLA875 PO (19:58)
== END 2021-06-25 20:10 | disposition home or self-care (01) ==
LOC: ER 17:04
PROVIDERS: Physician Assistant
DX: L03.116 Cellulitis of left lower limb (principal); Z91.048 Other nonmedicinal substance allergy status; Z88.8 Allergy status to other drugs, medicaments and biological substances; Z88.5 Allergy status to narcotic agent
CPT/HCPCS: 36415; 73701; 80053; 85025; A9270; J2270; J2405; Q9967

== ENCOUNTER 2021-08-10 04:03 | Emergency (ER) | payer BC ==
[~2021-08-10] VITALS: Ht 165.1 cm; Wt 100.2 kg
[~2021-08-10 04:03] MED LIST changes: +AMOCLA875 PO; +OMEP20ER PO; +QUETIAPINE FUM PO; +SYNTHROID PO
[2021-08-10] MEDS ORDERED: AMLO5 PO (04:13)
[2021-08-10] MEDS ORDERED: Percocet 5-3251 EACH PO (04:46)
== END 2021-08-10 05:04 | disposition home or self-care (01) ==
LOC: ER 04:03
DX: S52.614A Nondisplaced fracture of right ulna styloid process, initial encounter for closed fracture (principal); Z91.048 Other nonmedicinal substance allergy status; Z88.5 Allergy status to narcotic agent; Z88.8 Allergy status to other drugs, medicaments and biological substances; Z79.899 Other long term (current) drug therapy; W19.XXXA Unspecified fall, initial encounter; Y92.008 Other place in unspecified non-institutional (private) residence as the place of occurrence of the external cause
CPT/HCPCS: 73090; A9270

== ENCOUNTER → 2021-12-12 | Outpatient (CLI) | payer BC ==
[~2021-12-12] MED LIST changes: +AMLO5 PO; +Percocet 5-3251 EACH PO; +QUET300 PO
[2021-12-12 17:39] LABS: BASOPHILS ABSOLUTE AUTO 0.07 K/mm3 (0.00-0.23); BASOPHILS PERCENT AUTO 1 % (0-2); EOSINOPHILS ABSOLUTE AUTO 0.63 K/mm3 (0.00-0.68); EOSINOPHILS PERCENT AUTO 7 % (0-6); Hematocrit 43.1 % (33.0-51.0); Hemoglobin 14.9 g/dL (11.5-16.0); IMMATURE GRAN PERCENT AUTO 1 % (0-1); LYMPHOCYTES ABSOLUTE AUTO 3.02 K/mm3 (0.84-5.20); LYMPHOCYTES PERCENT AUTO 31 % (21-46); MONOCYTES ABSOLUTE AUTO 0.49 K/mm3 (0.16-1.47); MONOCYTES PERCENT AUTO 5 % (4-13); Mean Corpuscular HGB 32.5 pg (26.0-34.0); Mean Corpuscular HGB Conc 34.6 g/dL (31.5-36.5); Mean Corpuscular Volume 94 fL (80-100); Mean Platelet Volume 12.2 fL (9.1-12.4); NEUTROPHILS ABSOLUTE AUTO 5.41 K/mm3 (1.96-9.15); NEUTROPHILS PERCENT AUTO 56 % (41-73); Platelet Count 227 K/mm3 (150-400); RDW Coefficient Variation 13.2 % (11.7-14.2); RDW Standard Deviation 45.3 fL (35.1-46.3); Red Blood Cell Count 4.58 M/mm3 (3.80-5.20); White Blood Cell Count 9.72 K/mm3 (4.00-11.30)
[2021-12-12 17:45] LABS: Albumin, Blood 3.6 g/dL (3.4-5.0); Bilirubin, Total 0.2 mg/dL (0.1-1.0); Bun/Creatinine Ratio 25.5 (12.0-20.0); Creatinine, Blood 0.94 mg/dL (0.40-1.00); Globulin, Blood 3.6 g/dL (2.2-4.0); Potassium, Blood 4.3 mmol/L (3.5-5.5); Thyroid Stimulating Hormone 3.06 uIU/mL (0.360-4.800); Total Protein, Blood 7.2 g/dL (6.4-8.2)
== END | disposition home or self-care (01) ==
LOC: LAB SHORT 17:20 → LAB 17:20
PROVIDERS: Physician Assistant
DX: R07.9 Chest pain, unspecified (principal); R53.83 Other fatigue
CPT/HCPCS: 80053; 84443; 84484; 85025; 85379

== ENCOUNTER → 2022-04-08 | Outpatient (CLI) | payer BC ==
[2022-04-08 11:19] LABS: BASOPHILS ABSOLUTE AUTO 0.07 K/mm3 (0.00-0.23); BASOPHILS PERCENT AUTO 1 % (0-2); EOSINOPHILS ABSOLUTE AUTO 0.79 K/mm3 (0.00-0.68); EOSINOPHILS PERCENT AUTO 9 % (0-6); Hematocrit 47.7 % (33.0-51.0); Hemoglobin 16.5 g/dL (11.5-16.0); IMMATURE GRAN ABSOLUTE AUTO 0.06 K/mm3 (0.00-0.10); IMMATURE GRAN PERCENT AUTO 1 % (0-1); LYMPHOCYTES ABSOLUTE AUTO 2.92 K/mm3 (0.84-5.20); LYMPHOCYTES PERCENT AUTO 33 % (21-46); MONOCYTES ABSOLUTE AUTO 0.41 K/mm3 (0.16-1.47); MONOCYTES PERCENT AUTO 5 % (4-13); Mean Corpuscular HGB 32.2 pg (26.0-34.0); Mean Corpuscular HGB Conc 34.6 g/dL (31.5-36.5); Mean Corpuscular Volume 93 fL (80-100); Mean Platelet Volume 12.1 fL (9.1-12.4); NEUTROPHILS ABSOLUTE AUTO 4.72 K/mm3 (1.96-9.15); NEUTROPHILS PERCENT AUTO 53 % (41-73); Platelet Count 216 K/mm3 (150-400); RDW Coefficient Variation 13.2 % (11.7-14.2); RDW Standard Deviation 44.5 fL (35.1-46.3); Red Blood Cell Count 5.13 M/mm3 (3.80-5.20); White Blood Cell Count 8.97 K/mm3 (4.00-11.30)
[2022-04-08 11:47] LABS: Bun/Creatinine Ratio 26.3 (12.0-20.0); Calcium, Blood 9.7 mg/dL (8.5-10.1); Creatinine, Blood 1.18 mg/dL (0.40-1.00); Potassium, Blood 4.4 mmol/L (3.5-5.5); Thyroid Stimulating Hormone 2.511 uIU/mL (0.360-4.800)
== END | disposition home or self-care (01) ==
LOC: LAB SHORT 11:15
PROVIDERS: Physician Assistant Surgical
DX: R29.818 Other symptoms and signs involving the nervous system (principal); R51.9 Headache, unspecified; R53.83 Other fatigue
CPT/HCPCS: 80048; 84443; 85025

== ENCOUNTER → 2022-09-29 | Outpatient (CLI) | payer BC | LOC: LAB 15:59 → LAB SHORT 15:59 | DX: N39.0 Urinary tract infection, site not specified (principal) | CPT/HCPCS: 87077; 87086; 87186 ==

== ENCOUNTER 2022-12-06 10:14 | Emergency (ER) | payer OTHER ==
[~2022-12-06] VITALS: Ht 165.1 cm; Wt 108.9 kg
[2022-12-06] MEDS ORDERED: CYCL10 PO (10:50)
[2022-12-06 11:21] LABS: BASOPHILS ABSOLUTE AUTO 0.08 K/mm3 (0.00-0.23); BASOPHILS PERCENT AUTO 1 % (0-2); EOSINOPHILS ABSOLUTE AUTO 0.32 K/mm3 (0.00-0.68); EOSINOPHILS PERCENT AUTO 3 % (0-6); Hematocrit 45.4 % (33.0-51.0); Hemoglobin 15.3 g/dL (11.5-16.0); IMMATURE GRAN PERCENT AUTO 1 % (0-1); LYMPHOCYTES ABSOLUTE AUTO 4.55 K/mm3 (0.84-5.20); LYMPHOCYTES PERCENT AUTO 40 % (21-46); MONOCYTES ABSOLUTE AUTO 0.52 K/mm3 (0.16-1.47); MONOCYTES PERCENT AUTO 5 % (4-13); Mean Corpuscular HGB 32.5 pg (26.0-34.0); Mean Corpuscular HGB Conc 33.7 g/dL (31.5-36.5); Mean Corpuscular Volume 96 fL (80-100); Mean Platelet Volume 12.2 fL (9.1-12.4); NEUTROPHILS ABSOLUTE AUTO 5.79 K/mm3 (1.96-9.15); NEUTROPHILS PERCENT AUTO 51 % (41-73); Platelet Count 211 K/mm3 (150-400); RDW Coefficient Variation 13.2 % (11.7-14.2); RDW Standard Deviation 46.5 fL (35.1-46.3); Red Blood Cell Count 4.71 M/mm3 (3.80-5.20); White Blood Cell Count 11.36 K/mm3 (4.00-11.30)
[2022-12-06 11:36] LABS: Bun/Creatinine Ratio 40.5 (12.0-20.0); Calcium, Blood 8.7 mg/dL (8.5-10.1); Creatinine, Blood 0.69 mg/dL (0.40-1.00); Potassium, Blood 3.7 mmol/L (3.5-5.5)
[2022-12-06] MEDS ORDERED: Neurontin 300300 MG PO (13:04)
[2022-12-06] MEDS ORDERED: Robaxin750 MG PO (13:04)
[2022-12-06] MEDS ORDERED: NAPROXEN250 M1 PO (13:04)
[2022-12-06 13:14] VITALS: BP 152/90
== END 2022-12-06 13:15 | disposition home or self-care (01) ==
LOC: ER 10:14
PROVIDERS: Emergency Medicine
DX: M54.16 Radiculopathy, lumbar region (principal); I10 Essential (primary) hypertension; E11.9 Type 2 diabetes mellitus without complications; E03.9 Hypothyroidism, unspecified; Z91.048 Other nonmedicinal substance allergy status; Z88.6 Allergy status to analgesic agent; Z88.5 Allergy status to narcotic agent; Z79.899 Other long term (current) drug therapy; Z87.891 Personal history of nicotine dependence
CPT/HCPCS: 72148; 80048; 85025; 96374; 96376; 99284-25; A9270; J1170

== ENCOUNTER 2024-02-16 03:04 | Emergency (ER) | payer BC ==
[~2024-02-16] VITALS: Ht 157.5 cm; Wt 74.8 kg
[~2024-02-16 03:04] MED LIST changes: +NAPROXEN250 M1 PO; +Neurontin 300300 MG PO; +Robaxin750 MG PO
[2024-02-16] MEDS ORDERED: Acetaminophen 500 MG Tab PO ONE (03:25)
[2024-02-16] MEDS ORDERED: Dicyclomine HCl 10 MG/ML 2ML Amp IM ONE (03:25)
[2024-02-16] MEDS ORDERED: METF500 PO (03:33)
[2024-02-16 03:43] LABS: Source, Urine Clean Catch
[2024-02-16 03:43] LABS: BASOPHILS ABSOLUTE AUTO 0.09 K/mm3 (0.00-0.23); BASOPHILS PERCENT AUTO 1 % (0-2); EOSINOPHILS ABSOLUTE AUTO 0.68 K/mm3 (0.00-0.68); EOSINOPHILS PERCENT AUTO 6 % (0-6); Hematocrit 43.1 % (33.0-51.0); IMMATURE GRAN ABSOLUTE AUTO 0.07 K/mm3 (0.00-0.10); IMMATURE GRAN PERCENT AUTO 1 % (0-1); LYMPHOCYTES ABSOLUTE AUTO 3.72 K/mm3 (0.84-5.20); LYMPHOCYTES PERCENT AUTO 34 % (21-46); MONOCYTES ABSOLUTE AUTO 0.58 K/mm3 (0.16-1.47); MONOCYTES PERCENT AUTO 5 % (4-13); Mean Corpuscular HGB 32.3 pg (26.0-34.0); Mean Corpuscular HGB Conc 34.8 g/dL (31.5-36.5); Mean Corpuscular Volume 93 fL (80-100); Mean Platelet Volume 12.1 fL (9.1-12.4); NEUTROPHILS ABSOLUTE AUTO 5.75 K/mm3 (1.96-9.15); NEUTROPHILS PERCENT AUTO 53 % (41-73); Platelet Count 232 K/mm3 (150-400); RDW Coefficient Variation 13.2 % (11.7-14.2); RDW Standard Deviation 45.1 fL (35.1-46.3); Red Blood Cell Count 4.64 M/mm3 (3.80-5.20); White Blood Cell Count 10.89 K/mm3 (4.00-11.30)
[2024-02-16 03:47] LABS: Bilirubin, Urine Neg (Neg); Blood, Urine 4+ (Neg); Glucose Qualitative, Urine Neg (Neg); Ketones, Urine Neg (Neg); Leukocyte Esterase, Urine 2+ (Neg); Nitrite, Urine Pos (Neg); Protein, Urine 3+ (Neg); Urobilinogen, Urine NORM (Normal)
[2024-02-16 03:55] LABS: Appearance, Urine Cloudy (Clear); Color, Urine Yellow (P-Yellow)
[2024-02-16 03:57] LABS: Bacteria Many /hpf; Squamous Epithelial Cells Mod /hpf (Few); White Blood Cells, Urine 50-100 /hpf (0-5)
[2024-02-16 04:05] LABS: Albumin, Blood 3.7 g/dL (3.4-5.0); Albumin/Globulin Ratio 0.9 (0.8-1.8); Bilirubin, Total 0.2 mg/dL (0.1-1.0); Bun/Creatinine Ratio 43.4 (12.0-20.0); Calcium, Blood 9.9 mg/dL (8.5-10.1); Creatinine, Blood 0.71 mg/dL (0.40-1.00); Globulin, Blood 4.1 g/dL (2.2-4.0); Potassium, Blood 3.7 mmol/L (3.5-5.5); Total Protein, Blood 7.8 g/dL (6.4-8.2)
[2024-02-16] MEDS ORDERED: CefTRIAXone Sodium 1,000 MG in NS 100 ML IV ONE (04:10)
[2024-02-16] MEDS ORDERED: CEFD300 PO (05:42)
[2024-02-16 06:08] VITALS: BP 128/70
== END 2024-02-16 06:10 ==
LOC: ER 03:04
PROVIDERS: Emergency Medicine
DX: N39.0 Urinary tract infection, site not specified (principal); E11.9 Type 2 diabetes mellitus without complications; I10 Essential (primary) hypertension; E78.5 Hyperlipidemia, unspecified; Z87.891 Personal history of nicotine dependence; Z79.899 Other long term (current) drug therapy; Z79.1 Long term (current) use of non-steroidal anti-inflammatories (NSAID); Z91.048 Other nonmedicinal substance allergy status; Z88.5 Allergy status to narcotic agent; Z88.8 Allergy status to other drugs, medicaments and biological substances
CPT/HCPCS: 74176; 80053; 81001; 83605; 83690; 85025; 87077; 87086; 87186; 96365; 96372-59; 99284-25; A9270; J0500; J0696

== ENCOUNTER 2024-08-14 17:52 | Emergency (ER) | payer BC ==
[~2024-08-14] VITALS: Ht 165.1 cm; Wt 104.3 kg
[~2024-08-14 17:52] MED LIST changes: +CEFD300 PO; +METF500 PO
[2024-08-14] MEDS ORDERED: Ondansetron HCl 2 MG / ML 2ML Vial IV PRN (19:05)
[2024-08-14 19:20] LABS: BASOPHILS ABSOLUTE AUTO 0.07 K/mm3 (0.00-0.23); BASOPHILS PERCENT AUTO 1 % (0-2); EOSINOPHILS ABSOLUTE AUTO 0.49 K/mm3 (0.00-0.68); EOSINOPHILS PERCENT AUTO 6 % (0-6); Hematocrit 41.6 % (33.0-51.0); IMMATURE GRAN ABSOLUTE AUTO 0.04 K/mm3 (0.00-0.10); IMMATURE GRAN PERCENT AUTO 0 % (0-1); LYMPHOCYTES ABSOLUTE AUTO 3.23 K/mm3 (0.84-5.20); LYMPHOCYTES PERCENT AUTO 36 % (21-46); MONOCYTES ABSOLUTE AUTO 0.43 K/mm3 (0.16-1.47); MONOCYTES PERCENT AUTO 5 % (4-13); Mean Corpuscular HGB 33.2 pg (26.0-34.0); Mean Corpuscular HGB Conc 33.7 g/dL (31.5-36.5); Mean Corpuscular Volume 99 fL (80-100); Mean Platelet Volume 12.5 fL (9.1-12.4); NEUTROPHILS ABSOLUTE AUTO 4.63 K/mm3 (1.96-9.15); NEUTROPHILS PERCENT AUTO 52 % (41-73); Platelet Count 194 K/mm3 (150-400); RDW Coefficient Variation 13.5 % (11.7-14.2); RDW Standard Deviation 49.4 fL (35.1-46.3); Red Blood Cell Count 4.22 M/mm3 (3.80-5.20); White Blood Cell Count 8.89 K/mm3 (4.00-11.30)
[2024-08-14 19:31] LABS: Albumin, Blood 3.1 g/dL (3.4-5.0); Albumin/Globulin Ratio 0.8 (0.8-1.8); Bilirubin, Total 0.2 mg/dL (0.1-1.0); Bun/Creatinine Ratio 28.4 (12.0-20.0); Calcium, Blood 8.6 mg/dL (8.5-10.1); Creatinine, Blood 0.7 mg/dL (0.40-1.00); Globulin, Blood 3.8 g/dL (2.2-4.0); Potassium, Blood 4.1 mmol/L (3.5-5.5); Total Protein, Blood 6.9 g/dL (6.4-8.2)
[2024-08-14] MEDS ORDERED: Morphine Sulfate 4 MG/1 ML Injection IV ONE (22:45)
[2024-08-15] MEDS ORDERED: Nitroglycerin 0.4 MG SUBL SL ONE (00:15)
[2024-08-15] MEDS ORDERED: Labetalol HCL 5 MG/ML 4ML Injection (Single Dose) IV ONE (00:20)
[2024-08-15] MEDS ORDERED: Nitroglycerin 0.4 MG SUBL ONE (00:25)
[2024-08-15] MEDS ORDERED: Acetaminophen 500 MG Tab PO ONE (00:45)
[2024-08-15] MEDS ORDERED: HYDROmorphone HCl/Pf 1MG SYR IV ONE (01:20)
[2024-08-15] MEDS ORDERED: Lisinopril 20 MG Tab PO ONE (01:35)
[2024-08-15 02:30] VITALS: BP 161/87
[2024-08-15] MEDS ORDERED: ACET500 PO (02:31)
[2024-08-15] MEDS ORDERED: HYDCHL12.5 PO (02:31)
[2024-08-15] MEDS ORDERED: Lisinopril 20 MG Tab PO SCH (09:00)
== END 2024-08-15 02:38 | disposition home or self-care (01) ==
LOC: ER 17:52
PROVIDERS: Physician Assistant
DX: I16.0 Hypertensive urgency (principal); I10 Essential (primary) hypertension; E11.9 Type 2 diabetes mellitus without complications; E03.9 Hypothyroidism, unspecified; E78.00 Pure hypercholesterolemia, unspecified; F17.200 Nicotine dependence, unspecified, uncomplicated; Z88.8 Allergy status to other drugs, medicaments and biological substances; Z88.5 Allergy status to narcotic agent; Z91.048 Other nonmedicinal substance allergy status; Z79.890 Hormone replacement therapy; Z79.899 Other long term (current) drug therapy
CPT/HCPCS: 71046; 80053; 83690; 83735; 84484; 85025; 85379; 93005; 93010; 96374; 96375; 99285-25; A9270; J1171; J2270; J2405

== ENCOUNTER 2024-10-11 17:20 | Observation (INO) | payer BC ==
[~2024-10-11] VITALS: Ht 165.1 cm; Wt 108.9 kg
[~2024-10-11 17:20] MED LIST changes: +ACET500 PO; +HYDCHL12.5 PO
[2024-10-11] MEDS ORDERED: QUEtiapine Fumarate 25 MG Tab PO ONE (18:05)
[2024-10-11] MEDS ORDERED: Nicotine 14 MG PATCH TOP ONE (18:05)
[2024-10-11] MEDS ORDERED: OLANZapine 5 MG Tab PO ONE (18:05)
[2024-10-11 20:16] LABS: BASOPHILS ABSOLUTE AUTO 0.09 K/mm3 (0.00-0.23); BASOPHILS PERCENT AUTO 1 % (0-2); EOSINOPHILS ABSOLUTE AUTO 0.67 K/mm3 (0.00-0.68); EOSINOPHILS PERCENT AUTO 8 % (0-6); Hematocrit 42.2 % (33.0-51.0); Hemoglobin 14.4 g/dL (11.5-16.0); IMMATURE GRAN PERCENT AUTO 1 % (0-1); LYMPHOCYTES ABSOLUTE AUTO 3.87 K/mm3 (0.84-5.20); LYMPHOCYTES PERCENT AUTO 43 % (21-46); MONOCYTES PERCENT AUTO 5 % (4-13); Mean Corpuscular HGB 32.7 pg (26.0-34.0); Mean Corpuscular HGB Conc 34.1 g/dL (31.5-36.5); Mean Corpuscular Volume 96 fL (80-100); Mean Platelet Volume 12.5 fL (9.1-12.4); NEUTROPHILS ABSOLUTE AUTO 3.85 K/mm3 (1.96-9.15); NEUTROPHILS PERCENT AUTO 43 % (41-73); Platelet Count 240 K/mm3 (150-400); RDW Coefficient Variation 13.2 % (11.7-14.2); RDW Standard Deviation 46.3 fL (35.1-46.3); Red Blood Cell Count 4.41 M/mm3 (3.80-5.20); White Blood Cell Count 8.98 K/mm3 (4.00-11.30)
[2024-10-11] MEDS ORDERED: MetFORMIN HCl 500 mg PO SCH (20:35)
[2024-10-11 20:41] LABS: Alanine Aminotransfer (ALT/SGP 121 U/L (12-78); Albumin, Blood 3.7 g/dL (3.4-5.0); Albumin/Globulin Ratio 0.9 (0.8-1.8); Alk Phos 119 U/L (50-136); Anion Gap 10 mmol/L (3-11); Aspartate Aminotrans (AST/SGOT 67 U/L (12-37); Bilirubin, Total 0.1 mg/dL (0.1-1.0); Blood Urea Nitrogen 23 mg/dL (8-24); Bun/Creatinine Ratio 30.3 (12.0-20.0); CO2, Blood 25 mmol/L (21-32); Calcium, Blood 9.3 mg/dL (8.5-10.1); Chloride, Blood 112 mmol/L (98-108); Creatinine, Blood 0.76 mg/dL (0.40-1.00); Globulin, Blood 4.1 g/dL (2.2-4.0); Glomerular Filtration Rate 98 (60-); Glucose, Blood 107 mg/dL (70-99); Potassium, Blood 3.8 mmol/L (3.5-5.5); Sodium, Blood 143 mmol/L (136-145); Total Protein, Blood 7.8 g/dL (6.4-8.2)
[2024-10-11 20:43] LABS: Acetaminophen, Random <2.0 ug/mL (10.0-30.0)
[2024-10-11] MEDS ORDERED: QUEtiapine Fumarate 25 MG Tab PO PRN (20:55)
[2024-10-11] MEDS ORDERED: HYDCHL25 PO (21:04)
[2024-10-11] MEDS ORDERED: PEPCID40 MG PO (21:05)
[2024-10-11] MEDS ORDERED: ALPRAZOLAM0.5 M1 PO (21:06)
[2024-10-11] MEDS ORDERED: CLOMIPRAMINE HC25 M2 PO (21:08)
[2024-10-11] MEDS ORDERED: AUVELITY ER 451 EACH PO (21:09)
[2024-10-11] MEDS ORDERED: ClomiPRAMINE HCl 25 MG Cap PO SCH (21:15)
[2024-10-11 21:56] LABS: Source, Urine Clean Catch
[2024-10-11 21:58] LABS: Bilirubin, Urine Neg (Neg); Blood, Urine Neg (Neg); Glucose Qualitative, Urine Neg (Neg); Ketones, Urine Neg (Neg); Leukocyte Esterase, Urine Neg (Neg); Nitrite, Urine Neg (Neg); Protein, Urine 1+ (Neg); Specific Gravity, Urine 1.005 (1.003-1.022); Urobilinogen, Urine NORM (Normal); pH, Urine 6.5 (5.0-8.0)
[2024-10-11 22:01] LABS: Appearance, Urine Clear (Clear); Color, Urine Pale Yellow (P-Yellow)
[2024-10-11 22:12] LABS: U Amphetamine Screen Not Detected; U Barbituate Screen Not Detected; U Benzodiazapine Screen DETECTED; U Buprenorphine Screen Not Detected; U Cannabinoids Screen Not Detected; U Cocaine Screen Not Detected; U Methadone Screen Not Detected; U Methamphetamine Screen Not Detected; U Opiates Screen Not Detected; U Oxycodone Screen Not Detected; U Phencyclidine Screen Not Detected
[2024-10-12] MEDS ORDERED: ALPRAZolam 0.5 MG Tab PO PRN (01:35)
[2024-10-12] MEDS ORDERED: Levothyroxine Sodium 0.1 MG Tab PO SCH (06:00)
[2024-10-12] MEDS ORDERED: HydroCHLOROthiazide 25 mg Tab PO SCH (09:00)
[2024-10-12] MEDS ORDERED: Famotidine 20 MG Tab PO SCH (09:00)
[2024-10-12] MEDS ORDERED: Non-Formulary Drug UD SCH (09:00)
[2024-10-12] MEDS ORDERED: Lisinopril 20 MG Tab PO SCH (09:00)
[2024-10-12 09:31] VITALS: BP 166/86
[2024-10-12] MEDS ORDERED: Acetaminophen 325 MG TABLET PO PRN (16:40)
[2024-10-12] MEDS ORDERED: AUVELITY UD SCH (18:00)
[2024-10-12] MEDS ORDERED: BUSP10 PO (20:41)
[2024-10-12] MEDS ORDERED: PRAZ2 PO (20:43)
[2024-10-12] MEDS ORDERED: BLOOD GLUOCSE1 EACH (20:46)
[2024-10-12] MEDS ORDERED: ASPI81CH PO (20:48)
[2024-10-12] MEDS ORDERED: SUMA25 PO (20:52)
[2024-10-12] MEDS ORDERED: METAMUCIL POWD798 GM PO (20:58)
[2024-10-13] MEDS ORDERED: METAMUCIL POWDER PO SCH (09:00)
== END 2024-10-12 18:15 | disposition other institution (70) ==
LOC: ER 17:20 → EOR 17:21
PROVIDERS: ADMIT Emergency Medicine
DX: R45.851 Suicidal ideations (principal); R44.0 Auditory hallucinations; R44.1 Visual hallucinations; E11.21 Type 2 diabetes mellitus with diabetic nephropathy; I10 Essential (primary) hypertension; E03.9 Hypothyroidism, unspecified; F17.200 Nicotine dependence, unspecified, uncomplicated; Z88.8 Allergy status to other drugs, medicaments and biological substances; Z79.84 Long term (current) use of oral hypoglycemic drugs; Z79.899 Other long term (current) drug therapy
CPT/HCPCS: 36415; 80053; 84443; 85025; 93005; 93010; 99285-25; A9270; G0378; G0480

== ENCOUNTER 2024-10-12 08:30 | Inpatient (IN) | payer BC ==
[~2024-10-12 08:30] MED LIST changes: +ALPRAZOLAM0.5 M1 PO; +AUVELITY ER 451 EACH PO; +CLOMIPRAMINE HC25 M2 PO; +HYDCHL25 PO; +PEPCID40 MG PO
[2024-10-12] MEDS ORDERED: TraZODone HCl 50 MG Tab PO PRN (12:50)
[2024-10-12] MEDS ORDERED: OLANZapine ODT 10 MG Tab MM PRN (12:50)
[2024-10-12] MEDS ORDERED: Polyethylene Glycol 3350 17 gm PO PRN (12:50)
[2024-10-12] MEDS ORDERED: LORazepam 2 MG Tab PO PRN (12:55)
[2024-10-12] MEDS ORDERED: Aluminum Hydroxide 320MG/5ML 473 ML PO PRN (12:55)
[2024-10-12] MEDS ORDERED: Acetaminophen 325 MG TABLET PO PRN (12:55)
[2024-10-12] MEDS ORDERED: HydrOXYzine Pamoate 50 MG Cap PO PRN (12:55)
[2024-10-12] MEDS ORDERED: FLU VACC TS2024-25(6MOS UP)/PF 45 MCG/0.5 ML SYRINGE IM SCH (12:55)
[2024-10-12] MEDS ORDERED: Melatonin 3 MG Tab PO PRN (12:55)
[2024-10-12] MEDS ORDERED: DiphenhydrAMINE HCl 50 MG Cap PO PRN (13:00)
[2024-10-12] MEDS ORDERED: Haloperidol 5 MG Tab PO PRN (13:00)
[2024-10-12] MEDS ORDERED: Calcium Carbonate 500 MG Tab Chew PO PRN (13:00)
[2024-10-12] MEDS ORDERED: Ondansetron 4 MG SoluTab MM PRN (13:05)
[2024-10-12 18:37] VITALS: BP 154/87
[2024-10-12] MEDS ORDERED: BUSP10 PO (20:41)
[2024-10-12] MEDS ORDERED: PRAZ2 PO (20:43)
[2024-10-12] MEDS ORDERED: BLOOD GLUOCSE1 EACH (20:46)
[2024-10-12] MEDS ORDERED: ASPI81CH PO (20:48)
[2024-10-12] MEDS ORDERED: SUMA25 PO (20:52)
[2024-10-12] MEDS ORDERED: METAMUCIL POWD798 GM PO (20:58)
[2024-10-12 21:01] VITALS: BP 154/87
--- NOTE | 2024-10-12 22:30 | NUR ---
ADMISSION NOTE: PATIENT WAS ADMITTED AT 1816 ON 10/12/24 AT THE [facility]. SHE CAME FROM [facility] AND WAS ESCORTED BY ONE STAFF AND TWO SECURITY. PATIENT WAS QUIET AND PLEASANT, COOPERATIVE WITH ADMISSION PROCESS. THIS RN TOOK OVER AT BEGINNING OF PENOLOGY TEACHER, 1844. PATIENT IS A GOOD HISTORIAN. SHE STATED THAT SHE HAS LOST TWO CLOSE FRIENDS TO SUICIDE IN A SHORT PERIOD OF TIME, ONE OF THEM YESTERDAY. SHE STATED, "I THINK I'M HAVING A NERVOUS BREAKDOWN." SHE STATED THAT SHE HAS BEEN DIAGNOSED WITH BIPOLAR TYPE 2, GENERALIZED ANXIETY DISORDER, DEPRESSION, OCD AND AGORAPHOBIA. SHE STATED THAT SHE HAS MANAGED, "UNTIL THE RECENT TRAUMA". SHE HAS A SMALL SUPPORT SYSTEM, WHICH CONSISTS OF ONLY HER SPOUSE. HER FAMILY HAS OR DOES NOT LIVE NEAR. PATIENT DECLINES OFFER OF FLU SHOT, "I DON'T GET THOSE THINGS". SHE HOPES TO BE REGULATED ON HER MEDICATIONS AND LEARN COPING SKILLS WHILE HERE. AFTER COMPLETING ADMISSION PROCESS, PATIENT WENT TO HER ROOM WHERE SHE LAY AWAKE IN BED. SHE WAS COMPLIANT WITH MEDICATION ADMINISTRATION AND ASKED PERTINENT QUESTIONS. SHE DENIED SI AT THIS TIME, AND STATED "I DON'T REALLY WANT TO , I JUST THINK ABOUT IT A LOT BECAUSE THINGS SEEM HOPELESS." SHE WENT TO BED EARLY, BUT GOT UP AGAIN ABOUT 2129, REQUESTING "SOMETHING TO HELP ME SETTLE DOWN". PER HER MASS SCORE, SHE WAS OFFERED AND RECEIVED A ZYPREXA WITH GOOD EFFECT. AT THIS TIME, SHE IS IN BED RESTING QUIETLY WITH EYES CLOSED AND RESPIRATIONS CONFIRMED. CONTINUING TO MONITOR FOR SAFETY WITH Q15 MINUTE CHECKS.
--- NOTE | 2024-10-13 04:35 | NUR ---
SHIFT SUMMARY: PATIENT WAS ADMITTED TO THE UNIT AT THE BEGINNING OF THE SHIFT. PLEASE SEE ADMISSION NOTE. SHE DID NOT WANT TO PARTICIPATE IN SNACK, BECAUSE SHE HAD BEEN GIVEN A SNACK WHEN SHE FIRST ARRIVED. "I'M FULL AND I'M TIRED". SHE WAS COMPLIANT WITH CARES, INCLUDING EVENING MEDICATION ADMINISTRATION. SHE ASKED PERTINENT QUESTIONS REGARDING HER MEDICATIONS. SHE HAD NO ISSUES OR CONCERNS. SHE DENIED FEELING SUICIDAL OR LIKE SELF HARMING. SHE STATED THAT SHE WOULD COME AND FIND A STAFF MEMBER IF SHE STARTED TO FEEL THAT WAY. SHE SPENT THE REMAINDER OF THE SHIFT RESTING QUIETLY WITH EYES CLOSED AND RESPIRATIONS CONFIRMED. CONTINUING TO MONITOR FOR SAFETY WITH Q15 MINUTE CHECKS.
[2024-10-13] MEDS ORDERED: QUEtiapine Fumarate 25 MG Tab PO PRN (08:15)
[2024-10-13] MEDS ORDERED: Prazosin HCl 1 MG Cap PO PRN (08:15)
[2024-10-13] MEDS ORDERED: SUMAtriptan Succinate 25 MG Tab PO PRN (08:15)
[2024-10-13] MEDS ORDERED: ALPRAZolam 0.5 MG Tab PO PRN (08:20)
[2024-10-13] MEDS ORDERED: Lisinopril 20 MG Tab PO SCH (09:00)
[2024-10-13] MEDS ORDERED: BusPIRone HCl 10 MG Tab PO SCH (09:00)
[2024-10-13] MEDS ORDERED: Famotidine 20 MG Tab PO SCH (09:00)
[2024-10-13] MEDS ORDERED: Aspirin 81 MG Chew PO SCH (09:00)
[2024-10-13] MEDS ORDERED: Multivitamins 1 Tab PO SCH (09:00)
[2024-10-13] MEDS ORDERED: HydroCHLOROthiazide 25 mg Tab PO SCH (09:00)
[2024-10-13] MEDS ORDERED: AUVELITY PO SCH (09:00)
[2024-10-13] MEDS ORDERED: ClomiPRAMINE HCl 25 MG Cap PO SCH (09:00)
--- NOTE | 2024-10-13 15:40 | NUR ---
SHIFT SUMMARY PT HAS BEEN VERY PLEASANT AND COOPERATIVE, ACTIVE IN THE [place]IE[place] AND GROUPS. MULTIPLE NEW MEDS UPDATED TODAY AFTER PROVIDER PLACED HOME MED ORDERS. PT'S VISITED TODAY AND BROUGHT HER GLASSES FOR HER. THIS MORNING THE PT STATED FEELING VERY ANXIOUS AND WAS MEDICATED WITH PRN VISTARIL PER HER REQUEST. SHE HAS HAD A GOOD DAY SINCE THAT TIME. CONTINUE WITH Q15 SAFETY MONITORING
[2024-10-13] MEDS ORDERED: MetFORMIN HCl 500 mg PO SCH (17:00)
[2024-10-13 19:45] VITALS: BP 122/72
--- NOTE | 2024-10-14 05:00 | NUR ---
SHIFT SUMMARY PATIENT UP IN [place] WATCHING TV, VISITING WITH STAFF AND PEERS. VERBALIZED THAT SHE IS FEELING BETTER AND ACKNOWLEDGE THAT SHE SHOULD CONTINUE TO TAKE HER MEDICATIONS FOR DEPRESSION. DENIES SI, HI, AND AVH. AT 0450 PATIENT AWAKE C/O JARVIS AND VERBALIZED THAT SHE HAS BEEN SLEEPING OFF AND ON T/O NIGHT WITH "RACING THOUGHTS" MEDICATED WITH TYLENOL AND HYDROXYZINE. PATIENT NOW BACK TO BED. CONTINUE TO MONITOR Q15MIN
[2024-10-14] MEDS ORDERED: Levothyroxine Sodium 0.1 MG Tab PO SCH (06:00)
[2024-10-14 08:01] VITALS: BP 118/56
--- NOTE | 2024-10-14 15:31 | NUR ---
SHIFT SUMMARY PT HAS HAD A VERY GOOD DAY, DENIES SI/HI/AVH. OF CONCERN IS SHE STS SHE DWELLS ON THE LOSS OF HER FRIENDS/FAMILY. PT HAS BEEN UP AND INVOLVED IN THE [place] ALL SHIFT WITHOUT ISSUE, HAS SPENT TIME PACING IN THE HALLWAY WITH ANOTHER FEMALE PT, TALKING, WATCHING TV. NO REAL NEEDS IDENTIFIED TODAY, PT HAS HAS HAD ONGOING SAFETY CHECKS Q15 MINUTES THROUGHOUT THE DAY
[2024-10-14] MEDS ORDERED: QUEtiapine Fumarate 100 MG Tab PO SCH (18:00)
[2024-10-15 04:26] VITALS: BP 119/68
--- NOTE | 2024-10-15 05:16 | NUR ---
SHIFT SUMMARY. A/O X 4. PLEASANT AND COOPERATIVE. DENIES SI, HI AND AVH. DOES SAY THAT SHE IS SAD OVER HER FRIENDS DEATHS THIS LAST WEEK. ENCOURAGED THAT IF SHE WOULD LIKE TO TALK, WE STAFF ARE HERE TO HELP HER. SHE SAID "OK AND THANK YOU." SLEPT THE NIGHT. GRICELDA HERNANDEZ TO [facility] FOR SAFET AND WELLNESS.
[2024-10-15 08:11] VITALS: BP 118/62
--- NOTE | 2024-10-15 16:30 | NUR ---
SHIFT SUMMARY PT HAS BEEN UP AND INVOLVED IN THE [place] ALL SHIFT, HAS BEEN VERY PLEASANT AND ENGAGING. HER CAME TO VISIT THIS AFTERNOON, IT APPEARED TO GO WELL. PT HAS HAD Q15 MIN SAFETY CHECKS THROUGHOUT THE DAY
[2024-10-15 20:23] VITALS: BP 124/56
[2024-10-15] MEDS ORDERED: QUEtiapine Fumarate 100 MG Tab PO SCH (21:00)
--- NOTE | 2024-10-16 05:25 | NUR ---
SHIFT SUMMARY : PT A/O X4. IN A PLEASANT AND COOPERATIVE MOOD. STATES SHE IS READY TO GO HOME. DENIES TO BE SUICIDAL, HI AND AVH. UP IN GROUP ROOM AFTER SNACK UNTIL BED TIME. WILL CONTINUE TO MONITOR FOR SAFETY AND WELLNESS.
[2024-10-16 08:13] VITALS: BP 119/54
--- NOTE | 2024-10-16 12:01 | NUR ---
SAFETY PLAN COMPLETED WITH PT AND WENT OVER DISCHARGE INSTRUCTIONS. PT VERBALIZED UNDERSTANDING AT THIS TIME. PT TO CALL FOR A RIDE HOME.
--- NOTE | 2024-10-16 12:18 | NUR ---
DISCHARGE NOTE PT A/O X4; PLEASANT AND COOPERATIVE WITH CARE. DENIES SI, HI, OR HALLUCINATIONS. SAFETY PLAN COMPLETED WITH PATIENT. DISCHARGE INSTRUCTIONS GONE OVER WITH PATIENT. VERBALLY INSTRUCTED PT TO ATTEND SCHEDULED APPOINTMENT WITH PCP WELL AND PT DEMONSTRATED UNDERSTANDING. PT'S PCP IS AT [facility]. BELONGINGS RETURNED TO PT AND SHE WAS PICKED UP BY HER .
== END 2024-10-16 12:17 | disposition home or self-care (01) | DRG 885 ==
LOC: BHU 08:30
PROVIDERS: ADMIT Psychiatry & Neurology Psychiatry
DX: F31.30 Bipolar disorder, current episode depressed, mild or moderate severity, unspecified (principal); R45.851 Suicidal ideations; F41.1 Generalized anxiety disorder; F43.23 Adjustment disorder with mixed anxiety and depressed mood; F13.90 Sedative, hypnotic, or anxiolytic use, unspecified, uncomplicated; E11.9 Type 2 diabetes mellitus without complications; M54.50 Low back pain, unspecified; G89.29 Other chronic pain; I10 Essential (primary) hypertension; E03.9 Hypothyroidism, unspecified; F17.210 Nicotine dependence, cigarettes, uncomplicated; Z88.8 Allergy status to other drugs, medicaments and biological substances; Z91.048 Other nonmedicinal substance allergy status; Z88.5 Allergy status to narcotic agent; Z79.811 Long term (current) use of aromatase inhibitors; Z79.82 Long term (current) use of aspirin; Z79.899 Other long term (current) drug therapy; Z79.84 Long term (current) use of oral hypoglycemic drugs; Z90.49 Acquired absence of other specified parts of digestive tract; Z98.1 Arthrodesis status; Z90.710 Acquired absence of both cervix and uterus; Z90.721 Acquired absence of ovaries, unilateral; Z98.890 Other specified postprocedural states; Z90.89 Acquired absence of other organs
CPT/HCPCS: A9270

== ENCOUNTER 2024-11-28 00:17 | Observation (INO) | payer BC ==
[~2024-11-28] VITALS: Ht 165.1 cm; Wt 113.4 kg
[~2024-11-28 00:17] MED LIST changes: +ASPI81CH PO; +BLOOD GLUOCSE1 EACH; +BUSP10 PO; +METAMUCIL POWD798 GM PO; +PRAZ2 PO; +SUMA25 PO
[2024-11-28] MEDS ORDERED: QUEtiapine Fumarate 100 MG Tab PO ONE (01:00)
[2024-11-28 01:09] LABS: BASOPHILS ABSOLUTE AUTO 0.11 K/mm3 (0.00-0.23); BASOPHILS PERCENT AUTO 1 % (0-2); EOSINOPHILS ABSOLUTE AUTO 0.64 K/mm3 (0.00-0.68); EOSINOPHILS PERCENT AUTO 7 % (0-6); Hematocrit 35.3 % (33.0-51.0); Hemoglobin 11.8 g/dL (11.5-16.0); IMMATURE GRAN ABSOLUTE AUTO 0.08 K/mm3 (0.00-0.10); IMMATURE GRAN PERCENT AUTO 1 % (0-1); LYMPHOCYTES ABSOLUTE AUTO 4.28 K/mm3 (0.84-5.20); LYMPHOCYTES PERCENT AUTO 44 % (21-46); MONOCYTES ABSOLUTE AUTO 0.41 K/mm3 (0.16-1.47); MONOCYTES PERCENT AUTO 4 % (4-13); Mean Corpuscular HGB 32.6 pg (26.0-34.0); Mean Corpuscular HGB Conc 33.4 g/dL (31.5-36.5); Mean Corpuscular Volume 98 fL (80-100); Mean Platelet Volume 11.7 fL (9.1-12.4); NEUTROPHILS ABSOLUTE AUTO 4.15 K/mm3 (1.96-9.15); NEUTROPHILS PERCENT AUTO 43 % (41-73); Platelet Count 244 K/mm3 (150-400); RDW Coefficient Variation 14.1 % (11.7-14.2); RDW Standard Deviation 50.1 fL (35.1-46.3); Red Blood Cell Count 3.62 M/mm3 (3.80-5.20); White Blood Cell Count 9.67 K/mm3 (4.00-11.30)
[2024-11-28] MEDS ORDERED: Prazosin HCl 1 MG Cap PO ONE (01:15)
[2024-11-28 01:21] LABS: Acetaminophen, Random <2.0 ug/mL (10.0-30.0); Ethanol (Alcohol), Blood, Med 229 mg/dL; Salicylate <1.7 mg/dL (2.8-20.0)
[2024-11-28 01:22] LABS: Alanine Aminotransfer (ALT/SGP 124 U/L (12-78); Albumin, Blood 3.1 g/dL (3.4-5.0); Albumin/Globulin Ratio 0.8 (0.8-1.8); Alk Phos 117 U/L (50-136); Anion Gap 14 mmol/L (3-11); Aspartate Aminotrans (AST/SGOT 87 U/L (12-37); Bilirubin, Total 0.1 mg/dL (0.1-1.0); Blood Urea Nitrogen 19 mg/dL (8-24); Bun/Creatinine Ratio 19.7 (12.0-20.0); CO2, Blood 21 mmol/L (21-32); Calcium, Blood 8.4 mg/dL (8.5-10.1); Chloride, Blood 112 mmol/L (98-108); Creatinine, Blood 0.96 mg/dL (0.40-1.00); Globulin, Blood 3.8 g/dL (2.2-4.0); Glomerular Filtration Rate 74 (60-); Glucose, Blood 174 mg/dL (70-99); Potassium, Blood 3.7 mmol/L (3.5-5.5); Sodium, Blood 143 mmol/L (136-145); Total Protein, Blood 6.9 g/dL (6.4-8.2)
[2024-11-28 02:05] LABS: Source, Urine Clean Catch
[2024-11-28] MEDS ORDERED: Haloperidol Lactate Inj. 5 MG/ML Injection IM ONE (02:05)
[2024-11-28 02:10] LABS: Bilirubin, Urine Neg (Neg); Blood, Urine Neg (Neg); Glucose Qualitative, Urine Neg (Neg); Ketones, Urine Neg (Neg); Leukocyte Esterase, Urine 1+ (Neg); Nitrite, Urine Neg (Neg); Protein, Urine 1+ (Neg); Urobilinogen, Urine NORM (Normal)
[2024-11-28 02:14] LABS: Appearance, Urine Clear (Clear); Color, Urine Yellow (P-Yellow)
[2024-11-28 02:16] LABS: Bacteria Few /hpf; Red Blood Cells, Urine Not Seen /hpf (0-2); Squamous Epithelial Cells Few /hpf (Few); Transitional Epithelial Cells Few /hpf (0-Rare)
[2024-11-28 02:27] LABS: U Amphetamine Screen Not Detected; U Barbituate Screen Not Detected; U Benzodiazapine Screen DETECTED; U Buprenorphine Screen Not Detected; U Cannabinoids Screen Not Detected; U Cocaine Screen Not Detected; U Methadone Screen Not Detected; U Methamphetamine Screen Not Detected; U Opiates Screen Not Detected; U Oxycodone Screen Not Detected; U Phencyclidine Screen Not Detected
[2024-11-28 10:32] VITALS: BP 135/80
== END 2024-11-28 10:55 | disposition home or self-care (01) ==
LOC: ER 00:17 → EOR 03:33
PROVIDERS: ADMIT Student in an Organized Health Care Education/Training Program
DX: R45.851 Suicidal ideations (principal); E11.9 Type 2 diabetes mellitus without complications; I10 Essential (primary) hypertension; E03.9 Hypothyroidism, unspecified; F17.200 Nicotine dependence, unspecified, uncomplicated; Z79.82 Long term (current) use of aspirin; Z79.890 Hormone replacement therapy; Z79.899 Other long term (current) drug therapy; Z88.8 Allergy status to other drugs, medicaments and biological substances; Z91.048 Other nonmedicinal substance allergy status
CPT/HCPCS: 80053; 80320; 81001; 81025; 85025; 96372; 99285-25; A9270; G0378; G0480; J1630

== ENCOUNTER 2024-12-06 07:15 | Emergency (ER) | payer BC ==
[~2024-12-06] VITALS: Ht 165.1 cm; Wt 101.2 kg
[2024-12-06] MEDS ORDERED: AUVELITY ER 451 EACH PO (07:40)
[2024-12-06] MEDS ORDERED: Ondansetron HCl 2 MG / ML 2ML Vial IV PRN (07:45)
[2024-12-06] MEDS ORDERED: Morphine Sulfate 4 MG/1 ML Injection IV ONE (08:15)
[2024-12-06 08:25] LABS: BASOPHILS ABSOLUTE AUTO 0.07 K/mm3 (0.00-0.23); BASOPHILS PERCENT AUTO 1 % (0-2); EOSINOPHILS ABSOLUTE AUTO 0.47 K/mm3 (0.00-0.68); EOSINOPHILS PERCENT AUTO 6 % (0-6); Hematocrit 36.8 % (33.0-51.0); Hemoglobin 12.6 g/dL (11.5-16.0); IMMATURE GRAN ABSOLUTE AUTO 0.03 K/mm3 (0.00-0.10); IMMATURE GRAN PERCENT AUTO 0 % (0-1); LYMPHOCYTES ABSOLUTE AUTO 3.15 K/mm3 (0.84-5.20); LYMPHOCYTES PERCENT AUTO 40 % (21-46); MONOCYTES ABSOLUTE AUTO 0.54 K/mm3 (0.16-1.47); MONOCYTES PERCENT AUTO 7 % (4-13); Mean Corpuscular HGB 33.8 pg (26.0-34.0); Mean Corpuscular HGB Conc 34.2 g/dL (31.5-36.5); Mean Corpuscular Volume 99 fL (80-100); Mean Platelet Volume 11.9 fL (9.1-12.4); NEUTROPHILS ABSOLUTE AUTO 3.72 K/mm3 (1.96-9.15); NEUTROPHILS PERCENT AUTO 47 % (41-73); Platelet Count 223 K/mm3 (150-400); RDW Coefficient Variation 14.3 % (11.7-14.2); Red Blood Cell Count 3.73 M/mm3 (3.80-5.20); White Blood Cell Count 7.98 K/mm3 (4.00-11.30)
[2024-12-06 08:41] LABS: International Normalized Ratio 0.96; Prothrombin Time Results 10.3 Sec (9.7-11.5)
[2024-12-06 08:58] LABS: Albumin, Blood 3.3 g/dL (3.4-5.0); Albumin/Globulin Ratio 0.9 (0.8-1.8); Bilirubin, Total 0.2 mg/dL (0.1-1.0); Bun/Creatinine Ratio 28.6 (12.0-20.0); Calcium, Blood 9.1 mg/dL (8.5-10.1); Creatinine, Blood 0.84 mg/dL (0.40-1.00); Globulin, Blood 3.6 g/dL (2.2-4.0); Potassium, Blood 3.6 mmol/L (3.5-5.5); Total Protein, Blood 6.9 g/dL (6.4-8.2)
[2024-12-06] MEDS ORDERED: HYDROmorphone HCl/Pf 1MG SYR IV ONE (09:55)
[2024-12-06] MEDS ORDERED: Pantoprazole Sodium 40 MG Injection IV ONE (10:00)
[2024-12-06 12:45] VITALS: BP 110/54
[2024-12-06 13:03] LABS: Hematocrit 36.1 % (33.0-51.0)
== END 2024-12-06 13:58 | disposition home or self-care (01) ==
LOC: ER 07:15
PROVIDERS: Student in an Organized Health Care Education/Training Program
DX: K64.9 Unspecified hemorrhoids (principal); E11.9 Type 2 diabetes mellitus without complications; I10 Essential (primary) hypertension; E03.9 Hypothyroidism, unspecified; F17.210 Nicotine dependence, cigarettes, uncomplicated; Z91.09 Other allergy status, other than to drugs and biological substances; Z88.5 Allergy status to narcotic agent; Z88.8 Allergy status to other drugs, medicaments and biological substances; Z79.84 Long term (current) use of oral hypoglycemic drugs; Z79.890 Hormone replacement therapy; Z79.899 Other long term (current) drug therapy; Z79.82 Long term (current) use of aspirin
CPT/HCPCS: 74177; 80053; 85014; 85018; 85025; 85610; 85730; 86850; 86900; 86901; 96374; 96375; 99284-25; J1171; J2270; J2405; Q9967

== ENCOUNTER 2025-01-27 21:25 | Emergency (ER) | payer BC ==
[~2025-01-27] VITALS: Ht 157.5 cm; Wt 101.2 kg
[2025-01-27 22:08] LABS: BASOPHILS ABSOLUTE AUTO 0.07 K/mm3 (0.00-0.23); BASOPHILS PERCENT AUTO 1 % (0-2); EOSINOPHILS ABSOLUTE AUTO 0.56 K/mm3 (0.00-0.68); EOSINOPHILS PERCENT AUTO 6 % (0-6); Hematocrit 46.1 % (33.0-51.0); Hemoglobin 15.6 g/dL (11.5-16.0); IMMATURE GRAN ABSOLUTE AUTO 0.03 K/mm3 (0.00-0.10); IMMATURE GRAN PERCENT AUTO 0 % (0-1); LYMPHOCYTES ABSOLUTE AUTO 3.36 K/mm3 (0.84-5.20); LYMPHOCYTES PERCENT AUTO 37 % (21-46); MONOCYTES ABSOLUTE AUTO 0.48 K/mm3 (0.16-1.47); MONOCYTES PERCENT AUTO 5 % (4-13); Mean Corpuscular HGB 32.8 pg (26.0-34.0); Mean Corpuscular HGB Conc 33.8 g/dL (31.5-36.5); Mean Corpuscular Volume 97 fL (80-100); Mean Platelet Volume 11.8 fL (9.1-12.4); NEUTROPHILS ABSOLUTE AUTO 4.57 K/mm3 (1.96-9.15); NEUTROPHILS PERCENT AUTO 50 % (41-73); Platelet Count 274 K/mm3 (150-400); RDW Coefficient Variation 12.5 % (11.7-14.2); RDW Standard Deviation 44.5 fL (35.1-46.3); Red Blood Cell Count 4.76 M/mm3 (3.80-5.20); White Blood Cell Count 9.07 K/mm3 (4.00-11.30)
[2025-01-27 22:34] LABS: Albumin, Blood 3.4 g/dL (3.4-5.0); Albumin/Globulin Ratio 0.8 (0.8-1.8); Bilirubin, Total 0.2 mg/dL (0.1-1.0); Bun/Creatinine Ratio 31.8 (12.0-20.0); Calcium, Blood 8.4 mg/dL (8.5-10.1); Creatinine, Blood 0.91 mg/dL (0.40-1.00); Globulin, Blood 4.2 g/dL (2.2-4.0); Potassium, Blood 4.1 mmol/L (3.5-5.5); Total Protein, Blood 7.6 g/dL (6.4-8.2)
[2025-01-27] MEDS ORDERED: Ondansetron HCl 2 MG / ML 2ML Vial IV ONE (23:50)
[2025-01-27] MEDS ORDERED: FentaNYL Citrate 50 MCG/ML 2 ML Injection IV ONE (23:50)
[2025-01-27] MEDS ORDERED: Dicyclomine HCl 20 MG Tab PO ONE (23:50)
[2025-01-28 00:15] VITALS: BP 176/11
[2025-01-28 03:07] LABS: Source, Urine Clean Catch
[2025-01-28 03:16] LABS: Bilirubin, Urine Neg (Neg); Blood, Urine Neg (Neg); Glucose Qualitative, Urine Neg (Neg); Ketones, Urine Neg (Neg); Leukocyte Esterase, Urine Neg (Neg); Nitrite, Urine Pos (Neg); Protein, Urine 2+ (Neg); Urobilinogen, Urine NORM (Normal)
[2025-01-28 03:17] LABS: Appearance, Urine Clear (Clear); Color, Urine Yellow (P-Yellow)
[2025-01-28 03:24] LABS: Bacteria Many /hpf; Red Blood Cells, Urine Not Seen /hpf (0-2); Squamous Epithelial Cells Mod /hpf (Few)
[2025-01-28] MEDS ORDERED: FentaNYL Citrate 50 MCG/ML 2 ML Injection IV ONE (03:35)
== END 2025-01-28 03:40 | disposition home or self-care (01) ==
LOC: ER 21:25
PROVIDERS: Student in an Organized Health Care Education/Training Program
DX: R10.33 Periumbilical pain (principal); E11.9 Type 2 diabetes mellitus without complications; I10 Essential (primary) hypertension; E03.9 Hypothyroidism, unspecified; G43.909 Migraine, unspecified, not intractable, without status migrainosus; F17.210 Nicotine dependence, cigarettes, uncomplicated; Z79.899 Other long term (current) drug therapy; Z79.82 Long term (current) use of aspirin; Z79.84 Long term (current) use of oral hypoglycemic drugs; Z88.5 Allergy status to narcotic agent; Z88.8 Allergy status to other drugs, medicaments and biological substances
CPT/HCPCS: 74177; 80053; 81001; 83690; 85025; 87077; 87086; 87186; 96374-59; 96375; 96376; 99284-25; A9270; J2405; J3010; Q9967